=== PATIENT | female | born 1960 | race Caucasian/White ===

== ENCOUNTER 2017-10-30 20:28 | Emergency (ER) | payer MEDICAID, SELFPAY ==
[2017-10-30 20:30] VITALS: BP 146/90; PULSE 89; RESP 16; TEMP 37.3; O2SAT 94; BMI 27.1
--- NOTE | 2017-10-30 21:16 | CT_ITS ---
STUDY: CT BRAIN WITHOUT CONTRAST REASON FOR EXAM: Female, 57 years old. Weakness, altered mental status RADIATION DOSAGE (If Supplied By Facility): CTDIvol = ( 44.99 ) mGy, DLP = ( 745.49 ) mGycm TECHNIQUE: Transaxial CT imaging of the brain was performed without administration of intravenous contrast material. Sagittal and coronal images are reformatted. Individualized dose optimization techniques were used for this CT. COMPARISON: None. FINDINGS: Normal soft tissue structures. Normal calvarium. Normal size ventricles and extra-axial spaces for the patient's age. Normal white matter tracts of the cerebral hemispheres. Normal basal ganglia and thalami. Normal brainstem. Normal cerebellum. There is no intracranial hemorrhage. There are no findings of an acute ischemic infarction. Normal visualized paranasal sinuses. CT/Brain/Head without Contrast IMPRESSION: No acute intracranial process. Electronically Signed: Billy Ferguson DO at 23:02 EDT , Service support ,
--- NOTE | 2017-10-30 21:16 | EKG12_ITS ---
Test Reason : ALT LOC Blood Pressure : / mmHG Vent. Rate : 070 BPM Atrial Rate : 070 BPM P-R Int : 160 ms QRS Dur : 094 ms QT Int : 434 ms P-R-T Axes : 050 -15 007 degrees QTc Int : 468 ms Normal sinus rhythm Normal ECG Confirmed by JARED HANSEN, HUGO ([id number]), editor managing director BERNY NORIEGA ([id number] on 11/03/2017 3:13:13 PM Referred By: AUGUST Confirmed By:HUGO COLEMAN MD
--- NOTE | 2017-10-30 21:35 | RAD_ITS ---
STUDY: X-RAY CHEST REASON FOR EXAM: Female, 57 years old. Shortness of breath, dyspnea TECHNIQUE: Single AP portable view of the chest. COMPARISON: 03/27/2017. FINDINGS: The lungs are clear and expanded. There is no demonstrated pleural abnormality. Normal size heart. Normal mediastinum and bhumika. Normal visualized pulmonary arteries. Normal visualized aortic arch and descending thoracic aorta. Normal visualized thoracic spine. Normal visualized ribs, clavicles, and shoulders. There is no demonstrated abnormality of the visualized soft tissue structures of the upper abdomen. RAD/Chest 1 View (Portable) IMPRESSION: No acute cardiopulmonary disease. Electronically Signed: Billy Ferguson DO at 22:21 EDT , Service support ,
[2017-10-30 22:03] LABS: Absolute Lymphocyte Count 2.05 X10^3/ul (0.83-4.51); Absolute Neutrophil Count 2.4 X10^3/uL (2.0-7.7); Basophil# 0.05 X10^3/uL; Eosinophil# 0.16 X10^3/uL; Eosinophils% 3.1 % (0-5); Hematocrit 38.1 % (37-47); Hemoglobin 12.3 g/dl (12.0-15.0); Lymphocyte # 2.05 X10^3/ul (4.0); Lymphocyte % 39.1 % (19-41); Mean Corp Hgb Conc 32.3 g/gl (32-36); Mean Corpuscular Hgb 29.9 pg (27.0-32.0); Mean Corpuscular Volume 92.7 fL (81-99); Mean Platelet Vol. 8.8 fl (6.2-12.0); Monocyte# 0.53 X10^3/uL; Monocyte% 10.1 % (0-10); Neutrophil # 2.43 X10^3/uL (2.7-7.7); Neutrophil % 46.3 % (47-70); Platelet Count 211 K/mm3 (150-450); RBC Distribution Width CV 13.5 % (11.6-14.6); RBC Distribution Width SD 45.7 fl (35.1-43.9); Red Blood Count 4.11 M/mm3 (4.2-5.4); White Blood Count 5.2 K/mm3 (4.4-11.0)
[2017-10-30 22:23] LABS: Amphetamine Urine VISTA NEGATIVE (<1000 ng/mL); Barbiturate Urine VISTA NEGATIVE (< 200 ng/mL); Benzodiazepine Urine VISTA POSITIVE (< 200 ng/mL); Cocaine Urine VISTA NEGATIVE (< 300 ng/mL); Ecstacy Urine VISTA NEGATIVE (< 500 ng/mL); Methadone Urine VISTA NEGATIVE (< 300 ng/mL); PCP Urine VISTA NEGATIVE (< 25 ng/mL); THC Urine VISTA NEGATIVE (< 50 ng/mL); Vista UDS pH Range 6
[2017-10-30 22:23] LABS: ALB/GLOB Ratio 1.2 RATIO (0.9-2.4); AST(SGOT) 30 U/L (15-37); Alanine Aminotransfer ALT/SGPT 23 U/L (13-56); Albumin, Serum 4.1 g/dL (3.2-5.0); Alkaline Phosphatase 114 U/L (45-117); Anion Gap 7 (5-15); BUN 5 mg/dL (7-18); BUN/Creat Ratio 7.6 RATIO (10-20); Calcium,Total 8.8 mg/dL (8.5-10.1); Chloride 103 mmol/L (98-107); Creatinine, Serum 0.66 mg/dL (0.55-1.02); EST Glomerular Filtration Rate 99 mL/min (>60); Est Glom Filt Rate - Afr Amer 120 mL/min (>60); Estimated Creatinine Clearance 79.67 ml/min; Globulin 3.5 g/dL (2.2-4.2); Glucose 87 mg/dL (74-106); Potassium 3.5 mmol/L (3.5-5.1); Protein, Total 7.6 g/dL (6.4-8.2); Sodium Level 139 mmol/L (136-145)
[2017-10-30 22:38] LABS: POSITIVE COUNT NO; POSITIVE DIFFERENTIAL NO; POSITIVE MORPHOLOGY NO
--- NOTE | 2017-10-30 22:42 | NURSING ---
ALCOHOL LEVEL OF 305 WAS RECEIVED BY THE LAB AND THIS INFORMATION WAS GIVEN TO DR. KOCH.
[2017-10-30 23:01] LABS: Acetaminophen (Tylenol) Level < 2.0 ug/mL (10.0-30.0); Salicylate < 1.7 mg/dL (2.8-20.0)
[2017-10-30 23:40] LABS: Osmolality, Serum 367 mOsm/KG (275-295)
[2017-10-30 23:47] VITALS: PULSE 66; RESP 16; O2SAT 97
[2017-10-31 01:37] VITALS: BP 101/71; PULSE 67; RESP 15; O2SAT 96
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
[2017-10-31] MEDS: Escitalopram Oxalate 20 MG Tablet 40 MG PO (02:22)
[2017-10-31] MEDS: traZODone 50 MG Tablet PO (02:22)
[2017-10-31 02:23] VITALS: BP 112/79; PULSE 86; RESP 18; O2SAT 94
[2017-10-31 03:00] VITALS: BP 105/72; PULSE 63; RESP 16; O2SAT 92
[2017-10-31 04:24] VITALS: BP 108/69; PULSE 69; RESP 14; RESP 15; TEMP 37.3; O2SAT 95
--- NOTE | 2017-10-31 04:26 | NURSING ---
FRIEND THAT WAS PREVIOUSLY AT THE BEDSIDE WAS NOT NOTIFIED BECAUSE PATIENT DID NOT WANT ME TO. SHE SAID SHE WOULD GET A HOLD OF THEM LATER TODAY.
[2017-11-02 12:39] LABS: Methyl Alcohol Negative % (0.000-0.010)
== END 2017-10-31 04:57 | disposition short-term general hospital (02) ==
PROVIDERS: Emergency Provider Emergency Medicine; Family Provider Family Medicine; PCP Family Medicine
DX: F10.129 Alcohol abuse with intoxication, unspecified (principal); F32.9 Major depressive disorder, single episode, unspecified; F41.9 Anxiety disorder, unspecified; I10 Essential (primary) hypertension; Z79.899 Other long term (current) drug therapy; Y90.8 Blood alcohol level of 240 mg/100 ml or more
CPT/HCPCS: 70450; 71045; 80053; 80307; 80320; 80329; 82009; 83930; 85025; 93005; 99284; A4216; G0480

== ENCOUNTER 2017-11-02 23:44 | Emergency (ER) | payer MEDICAID, SELFPAY ==
[2017-11-02 23:47] VITALS: BP 126/104; PULSE 70; RESP 18; TEMP 36.8; O2SAT 98; BMI 27.4
[2017-11-03] VITALS (9 sets, daily range): BP systolic 150–160; BP diastolic 85–105; PULSE 62–87; RESP 14–18; O2SAT 94–98
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
[2017-11-03 00:28] LABS: Absolute Lymphocyte Count 1.76 X10^3/ul (0.83-4.51); Basophil# 0.06 X10^3/uL; Basophil% 1.3 % (0-1); Eosinophil# 0.14 X10^3/uL; Hematocrit 35.6 % (37-47); Hemoglobin 11.5 g/dl (12.0-15.0); Lymphocyte # 1.76 X10^3/ul (4.0); Lymphocyte % 38.1 % (19-41); Mean Corp Hgb Conc 32.3 g/gl (32-36); Mean Platelet Vol. 9.5 fl (6.2-12.0); Monocyte# 0.62 X10^3/uL; Monocyte% 13.4 % (0-10); Neutrophil # 2.01 X10^3/uL (2.7-7.7); Neutrophil % 43.6 % (47-70); Platelet Count 214 K/mm3 (150-450); RBC Distribution Width CV 13.4 % (11.6-14.6); Red Blood Count 3.71 M/mm3 (4.2-5.4); White Blood Count 4.6 K/mm3 (4.4-11.0)
[2017-11-03 00:33] LABS: POSITIVE COUNT NO; POSITIVE DIFFERENTIAL NO; POSITIVE MORPHOLOGY NO
[2017-11-03 00:35] LABS: Bacteria 0 SEEN /hpf (None Seen); Mucous, Urine 0 SEEN /hpf (<or=2+); Red Blood Cells-Urine 0 SEEN /hpf (0-5); Squamous Epithelial Cells - UA 0 SEEN /hpf (5-10); White Blood Cells 0 SEEN /hpf (0-5)
[2017-11-03 00:43] LABS: Color, Urine Straw (Yellow); Glucose, Dipstick Normal (Normal); Ketone-Dipstick Negative (Negative); Leukocyte Esterase-Dipstick Negative /ul (Negative); Nitrite-Dipstick Negative (Negative); Occult Blood-Urine Negative /ul (Negative); Protein-Dipstick Negative (Negative); Urine Bilirubin Dipstick Negative (Negative); Urine Clarity Clear (Clear); Urine Urobilinogen Normal (Normal)
[2017-11-03 00:45] LABS: Vista UDS pH Range 7
[2017-11-03 00:57] LABS: Amphetamine Urine VISTA NEGATIVE (<1000 ng/mL); Barbiturate Urine VISTA NEGATIVE (< 200 ng/mL); Benzodiazepine Urine VISTA NEGATIVE (< 200 ng/mL); Cocaine Urine VISTA NEGATIVE (< 300 ng/mL); Ecstacy Urine VISTA NEGATIVE (< 500 ng/mL); Methadone Urine VISTA NEGATIVE (< 300 ng/mL); PCP Urine VISTA NEGATIVE (< 25 ng/mL); THC Urine VISTA NEGATIVE (< 50 ng/mL)
[2017-11-03 01:15] LABS: ALB/GLOB Ratio 1.2 RATIO (0.9-2.4); AST(SGOT) 40 U/L (15-37); Alanine Aminotransfer ALT/SGPT 29 U/L (13-56); Albumin, Serum 3.9 g/dL (3.2-5.0); Alkaline Phosphatase 96 U/L (45-117); Anion Gap 6 (5-15); BUN 3 mg/dL (7-18); BUN/Creat Ratio 4.7 RATIO (10-20); Calcium,Total 8.9 mg/dL (8.5-10.1); Chloride 107 mmol/L (98-107); Creatinine, Serum 0.64 mg/dL (0.55-1.02); EST Glomerular Filtration Rate 101 mL/min (>60); Est Glom Filt Rate - Afr Amer 123 mL/min (>60); Estimated Creatinine Clearance 82.16 ml/min; Globulin 3.3 g/dL (2.2-4.2); Glucose 97 mg/dL (74-106); Potassium 3.5 mmol/L (3.5-5.1); Protein, Total 7.2 g/dL (6.4-8.2); Sodium Level 142 mmol/L (136-145); Thyroid Stim Hormone (TSH) 1.44 uIU/mL (0.358-3.74)
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
--- NOTE | 2017-11-03 02:37 | ED.RN ---
PATIENTS SON INFORMATION YONG MATIAS [phone] PER SON PATIENT HAD RECENT RELEASE FROM [facility]
[2017-11-03] MEDS: ALPRAZolam 0.5 MG Tablet PO (03:24)
[2017-11-03] MEDS: Atenolol 25 MG Tablet PO (03:24)
[2017-11-03] MEDS: Escitalopram Oxalate 20 MG Tablet 40 MG PO (03:24)
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
== END 2017-11-03 10:40 | disposition home or self-care (01) ==
PROVIDERS: Emergency Provider Emergency Medicine; Family Provider Family Medicine; PCP Family Medicine
DX: R45.851 Suicidal ideations (principal); F10.129 Alcohol abuse with intoxication, unspecified; S00.81XA Abrasion of other part of head, initial encounter; Z79.899 Other long term (current) drug therapy; Y90.6 Blood alcohol level of 120-199 mg/100 ml; V47.0XXA Car driver injured in collision with fixed or stationary object in nontraffic accident, initial encounter; Y93.I9 Activity, other involving external motion; Y92.410 Unspecified street and highway as the place of occurrence of the external cause; Y99.8 Other external cause status
CPT/HCPCS: 36415; 70450; 80053; 80307; 80320; 81001; 84443; 85025; 99285; G0480

== ENCOUNTER → 2018-02-15 11:56 | Outpatient (CLI) | payer MEDICAID, SELFPAY ==
[2018-02-15 12:48] LABS: Prothrombin Time (Protime)PT. 13.4 SECONDS (11.7-14.9)
[2018-02-15 13:18] LABS: AST(SGOT) 27 U/L (15-37); Alanine Aminotransfer ALT/SGPT 27 U/L (13-56); Albumin, Serum 3.5 g/dL (3.2-5.0); Alkaline Phosphatase 113 U/L (45-117); Bilirubin, Direct 0.17 mg/dL (0.00-0.30); Globulin 3.6 g/dL (2.2-4.2); Protein, Total 7.1 g/dL (6.4-8.2)
[2018-02-15 14:09] LABS: Absolute Lymphocyte Count 1.96 X10^3/ul (0.83-4.51); Basophil# 0.08 X10^3/uL; Basophil% 1.3 % (0-1); Eosinophil# 0.22 X10^3/uL; Eosinophils% 3.7 % (0-5); Hematocrit 36.8 % (37-47); Hemoglobin 12.2 g/dl (12.0-15.0); Lymphocyte # 1.96 X10^3/ul (4.0); Lymphocyte % 32.6 % (19-41); Mean Corp Hgb Conc 33.2 g/gl (32-36); Mean Corpuscular Hgb 30.7 pg (27.0-32.0); Mean Corpuscular Volume 92.5 fL (81-99); Mean Platelet Vol. 9.7 fl (6.2-12.0); Monocyte# 0.72 X10^3/uL; Neutrophil # 3.03 X10^3/uL (2.7-7.7); Neutrophil % 50.2 % (47-70); Platelet Count 334 K/mm3 (150-450); RBC Distribution Width CV 13.3 % (11.6-14.6); RBC Distribution Width SD 44.2 fl (35.1-43.9); Red Blood Count 3.98 M/mm3 (4.2-5.4)
[2018-02-15 14:11] LABS: POSITIVE COUNT NO; POSITIVE DIFFERENTIAL NO; POSITIVE MORPHOLOGY NO
== END ==
PROVIDERS: Family Provider Family Medicine; PCP Family Medicine; Visit Provider Family Medicine
DX: R23.8 Other skin changes (principal)
CPT/HCPCS: 36415; 80076; 85025; 85610

== ENCOUNTER → 2018-03-26 12:00 | Outpatient (CLI) | payer MEDICAID, SELFPAY ==
[2018-03-28 08:50] LABS: EBV Acute VCA IgM < 36.0 U/mL (0.0-35.9); EBV Early Antigen IgG 13.6 U/mL (0.0-8.9)
== END ==
PROVIDERS: Family Provider Family Medicine; PCP Family Medicine; Visit Provider Family Medicine
DX: R53.83 Other fatigue (principal)
CPT/HCPCS: 36415; 86663; 86664; 86665

== ENCOUNTER → 2018-03-27 08:37 | Outpatient (CLI) | payer MEDICAID, SELFPAY ==
--- NOTE | 2018-03-27 08:37 | RAD_ITS ---
STUDY: X-RAY - LEFT KNEE REASON FOR EXAM: Pain for one week. TECHNIQUE: 4 view(s) of the knee. COMPARISON: Radiographs 10/02/2013. FINDINGS: Normal visualized distal femur. Normal visualized proximal tibia and fibula. Normal proximal tibiofibular articulation. There is moderate joint space narrowing of the medial femorotibial compartment. Normal lateral femorotibial compartment. There are small marginal osteophytes and moderate joint space narrowing of the patellofemoral articulation. The soft tissue structures are unremarkable. RAD/Knee 4 or More Views IMPRESSION: Arthrosis of the medial femorotibial and patellofemoral compartments as on the prior study. Electronically Signed: Luis Ceron MD at 15:33 EDT Tel , Service support ,
== END ==
PROVIDERS: Family Provider Family Medicine; PCP Family Medicine; Referring Provider Orthopaedic Surgery; Visit Provider Orthopaedic Surgery
DX: M25.562 Pain in left knee (principal)
CPT/HCPCS: 73564

== ENCOUNTER → 2018-05-16 07:56 | Outpatient (CLI) | payer MEDICAID, SELFPAY ==
--- NOTE | 2018-05-16 11:17 | NEURO_ITS ---
NCS and/or EMG Patient Report Ordering Doctor: Adele Gerber DATE OF SERVICE: 05/16/18 This is a bilateral lower extremity nerve conduction study and a right lower extremity EMG performed on this 58-year-old female who is had discoordination of her right lower extremity since an early age. Apparently she had neurophys iologic testing at age 12. She describes difficulty with the small muscles in her right foot. When she was a child her right shoe would slip off of her foot and she does trip occasionally. On examination, there does not appear to be any muscle atrophy in the right lower extremity, reflexes are intact. Bilateral lower extremity sensory and motor nerve conduction studies performed. The right sural sensory response is absent on the left side it is normal. The peroneal motor and tibial motor distal latencies amplitudes and conduction velocities are preserved bilaterally and the superficial peroneal sensory and medial plantar responses bilaterally are intact. Tibial and peroneal F-wave latencies are normal. There is mild reduction of the left tibial H reflex response of unclear clinical significance. Right lower extremity needle electromyography is performed. Muscles evaluated included the extensor digitorum brevis abductor hallucis, medial gastrocnemius, anterior tibialis, vastus medialis and vastus lateralis. There was no response from the small muscles of the feet. More proximal muscles were normal. Abnormal insertional activity was absent, and otherwise motor unit potential recruitment pattern and amplitude was normal. 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 There is also muscle atrophy of the small muscles of the foot. This is somewhat complicated by limited patient effort during examination. There is no evidence of radiculopathy. May represent a congenital neuropathy, or possibly AUTOMATION OPERATOR injury despite the absence of upper motor neuron findings.
== END ==
PROVIDERS: Family Provider Family Medicine; PCP Family Medicine; Referring Provider Orthopaedic Surgery; Visit Provider Orthopaedic Surgery
DX: M62.81 Muscle weakness (generalized) (principal)
CPT/HCPCS: 95886; 95912

== ENCOUNTER → 2018-09-04 16:50 | Outpatient (CLI) | payer MEDICAID, SELFPAY ==
[2018-09-04 17:36] LABS: Absolute Neutrophil Count 5.4 X10^3/uL (2.0-7.7); Basophil# 0.12 X10^3/uL; Basophil% 1.3 % (0-1); Eosinophil# 0.66 X10^3/uL; Eosinophils% 6.9 % (0-5); Hematocrit 37.2 % (37-47); Hemoglobin 11.7 g/dl (12.0-15.0); Lymphocyte % 27.2 % (19-41); Mean Corp Hgb Conc 31.5 g/gl (32-36); Mean Corpuscular Hgb 28.7 pg (27.0-32.0); Mean Corpuscular Volume 91.4 fL (81-99); Mean Platelet Vol. 9.6 fl (6.2-12.0); Monocyte# 0.78 X10^3/uL; Monocyte% 8.2 % (0-10); Neutrophil # 5.38 X10^3/uL (2.7-7.7); Neutrophil % 56.2 % (47-70); Platelet Count 314 K/mm3 (150-450); RBC Distribution Width CV 12.8 % (11.6-14.6); RBC Distribution Width SD 41.9 fl (35.1-43.9); Red Blood Count 4.07 M/mm3 (4.2-5.4); White Blood Count 9.6 K/mm3 (4.4-11.0)
[2018-09-04 17:37] LABS: POSITIVE COUNT NO; POSITIVE DIFFERENTIAL NO; POSITIVE MORPHOLOGY NO
[2018-09-04 17:42] LABS: Color, Urine Yellow (Yellow); Glucose, Dipstick Normal (Normal); Ketone-Dipstick Negative (Negative); Leukocyte Esterase-Dipstick Negative /ul (Negative); Nitrite-Dipstick Negative (Negative); Occult Blood-Urine Negative /ul (Negative); Protein-Dipstick Negative (Negative); Specific Gravity, Urine 1.005 (1.002-1.030); Urine Bilirubin Dipstick Negative (Negative); Urine Clarity Clear (Clear); Urine Urobilinogen Normal (Normal)
[2018-09-04 18:20] LABS: ALB/GLOB Ratio 1.1 RATIO (0.9-2.4); AST(SGOT) 14 U/L (15-37); Alanine Aminotransfer ALT/SGPT 18 U/L (13-56); Albumin, Serum 3.6 g/dL (3.2-5.0); Alkaline Phosphatase 92 U/L (45-117); Anion Gap 9 (5-15); BUN 7 mg/dL (7-18); Calcium,Total 8.5 mg/dL (8.5-10.1); Chloride 101 mmol/L (98-107); Cholesterol 184 mg/dL (200); Creatinine, Serum 0.78 mg/dL (0.55-1.02); EST Glomerular Filtration Rate 81 mL/min (>60); Est Glom Filt Rate - Afr Amer 98 mL/min (>60); Globulin 3.4 g/dL (2.2-4.2); Glucose 132 mg/dL (74-106); High Density Lipoprotein 87 mg/dL; Potassium 3.9 mmol/L (3.5-5.1); Sodium Level 139 mmol/L (136-145); Triglycerides 137 mg/dL; Very Low Density Lipoprotein 27 mg/dL (5-40)
== END ==
PROVIDERS: Family Provider Family Medicine; PCP Family Medicine; Referring Provider Family Medicine; Visit Provider Family Medicine
DX: Z00.00 Encounter for general adult medical examination without abnormal findings (principal); I10 Essential (primary) hypertension
CPT/HCPCS: 36415; 80053; 80061; 81002; 85025

== ENCOUNTER → 2018-09-07 13:08 | Outpatient (CLI) | payer MEDICAID, SELFPAY ==
[2018-09-07 14:58] LABS: Hemoglobin A1c 5.8 % (4.2-6.3)
[2018-09-07 15:06] LABS: Vitamin D,25 Hydroxy 24.4 ng/mL (29.95-100.01)
== END ==
PROVIDERS: Family Provider Family Medicine; PCP Family Medicine; Referring Provider Family Medicine; Visit Provider Family Medicine
DX: R73.9 Hyperglycemia, unspecified (principal); R53.83 Other fatigue; E55.9 Vitamin D deficiency, unspecified
CPT/HCPCS: 36415; 82306; 83036

== ENCOUNTER → 2018-11-05 | Outpatient (CLI) | payer MEDICAID, SELFPAY ==
--- NOTE | 2018-11-05 12:52 | BI_ITS ---
MAMMOGRAPHY - BILATERAL SCREENING 3-D TOMOSYNTHESIS REASON FOR EXAM: Female, 58 years old. Bilateral Screening 3-D tomosynthesis PERTINENT HISTORY: No significant family history. TECHNIQUE: 2-D mammograms and 3-D Tomosynthesis of the breast (s) were performed. CAD was performed. COMPARISON: March 25, 2015. FINDINGS: The breast composition is composed of scattered fibroglandular density. Scattered benign calcifications are seen. No dense spiculated masses or suspicious microcalcifications are identified. No architectural distortion is identified. There is no skin thickening or retraction. There has been no significant change since the prior study. BI/SCREENING MAMM (CAD), BILAT IMPRESSION: No mammographic signs of malignancy. Routine yearly mammograms recommended. ASSESSMENT CATEGORY: BIRADS Category 1: Negative. A letter regarding these results will be sent to the patient by the facility within 30 days. FOLLOW UP RECOMMENDATION: Yearly follow up mammogram recommended. (A) Approximately 10% of breast cancers are not detected by mammography. A normal mammogram should not delay biopsy of a clinically suspicious abnormality. Electronically Signed: James Stokes MD at 14:14 EDT , Service support ,
== END | disposition home or self-care (01) ==
LOC: OPBI 12:51
PROVIDERS: Family Provider Family Medicine; PCP Family Medicine; Referring Provider Family Medicine; Visit Provider Family Medicine
DX: Z12.31 Encounter for screening mammogram for malignant neoplasm of breast (principal)
CPT/HCPCS: 77063; 77067

== ENCOUNTER → 2018-11-06 | Outpatient (CLI) | payer MEDICAID, SELFPAY ==
[2018-11-06 17:21] LABS: Absolute Lymphocyte Count 2.04 X10^3/ul (0.83-4.51); Absolute Neutrophil Count 5.4 X10^3/uL (2.0-7.7); Basophil# 0.06 X10^3/uL; Basophil% 0.7 % (0-1); Eosinophil# 0.28 X10^3/uL; Eosinophils% 3.2 % (0-5); Hematocrit 36.4 % (37-47); Hemoglobin 11.5 g/dl (12.0-15.0); Lymphocyte # 2.04 X10^3/ul (4.0); Lymphocyte % 23.2 % (19-41); Mean Corp Hgb Conc 31.6 g/gl (32-36); Mean Corpuscular Hgb 26.9 pg (27.0-32.0); Monocyte# 0.97 X10^3/uL; Neutrophil # 5.42 X10^3/uL (2.7-7.7); Neutrophil % 61.6 % (47-70); Platelet Count 311 K/mm3 (150-450); RBC Distribution Width CV 13.1 % (11.6-14.6); Red Blood Count 4.28 M/mm3 (4.2-5.4); White Blood Count 8.8 K/mm3 (4.4-11.0)
[2018-11-06 17:24] LABS: POSITIVE COUNT NO; POSITIVE DIFFERENTIAL NO; POSITIVE MORPHOLOGY NO
[2018-11-06 17:27] LABS: Erythrocyte Sedimentation Rate 12 mm/hr (0-30)
[2018-11-06 18:35] LABS: ALB/GLOB Ratio 0.9 RATIO (0.9-2.4); AST(SGOT) 20 U/L (15-37); Alanine Aminotransfer ALT/SGPT 22 U/L (13-56); Albumin, Serum 3.5 g/dL (3.2-5.0); Alkaline Phosphatase 112 U/L (45-117); Anion Gap 10 (5-15); BUN 15 mg/dL (7-18); BUN/Creat Ratio 16.8 RATIO (10-20); Calcium,Total 8.9 mg/dL (8.5-10.1); Chloride 105 mmol/L (98-107); Creatinine, Serum 0.89 mg/dL (0.55-1.02); EST Glomerular Filtration Rate 69 mL/min (>60); Est Glom Filt Rate - Afr Amer 84 mL/min (>60); Globulin 3.7 g/dL (2.2-4.2); Glucose 92 mg/dL (74-106); Potassium 3.7 mmol/L (3.5-5.1); Protein, Total 7.2 g/dL (6.4-8.2); Sodium Level 139 mmol/L (136-145); Thyroid Stim Hormone (TSH) 1.82 uIU/mL (0.358-3.74)
[2018-11-06 18:41] LABS: HIV - WCH Non-Reactive (Nonreactive)
[2018-11-08 09:37] LABS: HEPATITIS B SURFACE AG Negative (Negative); Hepatitis A AB, Total Positive (Negative); Hepatitis A IgM Antibody Negative (Negative); Hepatitis B Core AB IgM Negative (Negative); Hepatitis B Core Ab Total Negative (Negative); Hepatitis C Ab <0.1 s/co ratio (0.0-0.9)
[2018-11-08 15:26] LABS: Hep B Surface Antibodies Reactive (.)
[2018-11-09 03:40] LABS: Rapid Plasmin Reagin (RPR) NONREACTIVE (NONREACTIVE)
[2018-11-12 16:06] LABS: Lyme IgG P18 Ab Absent (.); Lyme IgG P23 Ab Absent (.); Lyme IgG P28 Ab Absent (.); Lyme IgG P30 Ab Absent (.); Lyme IgG P39 Ab Absent (.); Lyme IgG P41 Ab Absent (.); Lyme IgG P45 Ab Absent (.); Lyme IgG P58 Ab Absent (.); Lyme IgG P66 Ab Absent (.); Lyme IgG P93 Ab Absent (.); Lyme IgM P23 Ab Absent (.); Lyme IgM P39 Ab Absent (.); Lyme IgM P41 Ab Absent (.)
[2018-11-13 10:07] LABS: Lyme IgG WB Interpretation Negative (.); Lyme IgM WB Interpretation Negative (.)
== END | disposition home or self-care (01) ==
PROVIDERS: Family Provider Family Medicine; PCP Family Medicine
DX: R53.82 Chronic fatigue, unspecified (principal)
CPT/HCPCS: 36415; 80053; 82248; 84443; 85025; 85652; 86592; 86617; 86703; 86704; 86705; 86706; 86708; 86709; 86803; 87340

== ENCOUNTER → 2018-12-03 | Outpatient (CLI) | payer MEDICAID, SELFPAY ==
[2018-12-03 17:23] LABS: Absolute Lymphocyte Count 1.31 X10^3/ul (0.83-4.51); Absolute Neutrophil Count 4.2 X10^3/uL (2.0-7.7); Basophil# 0.06 X10^3/uL; Eosinophil# 0.04 X10^3/uL; Eosinophils% 0.7 % (0-5); Hematocrit 34.3 % (37-47); Lymphocyte # 1.31 X10^3/ul (4.0); Lymphocyte % 21.8 % (19-41); Mean Corp Hgb Conc 32.1 g/gl (32-36); Mean Corpuscular Hgb 27.2 pg (27.0-32.0); Mean Corpuscular Volume 84.9 fL (81-99); Mean Platelet Vol. 9.2 fl (6.2-12.0); Monocyte# 0.38 X10^3/uL; Monocyte% 6.3 % (0-10); Platelet Count 320 K/mm3 (150-450); RBC Distribution Width CV 13.4 % (11.6-14.6); RBC Distribution Width SD 41.9 fl (35.1-43.9); Red Blood Count 4.04 M/mm3 (4.2-5.4)
[2018-12-03 17:35] LABS: POSITIVE COUNT NO; POSITIVE DIFFERENTIAL NO; POSITIVE MORPHOLOGY NO
[2018-12-03 17:56] LABS: Ferritin 4 ng/mL (8-252); Iron 36 ug/dL (50-170)
[2018-12-03 18:45] LABS: Hemoglobin A1c 5.7 % (4.2-6.3)
== END | disposition home or self-care (01) ==
LOC: LAB 16:26
PROVIDERS: Family Provider Family Medicine; PCP Family Medicine; Referring Provider Family Medicine; Visit Provider Family Medicine
DX: E55.9 Vitamin D deficiency, unspecified (principal); E61.1 Iron deficiency; R73.9 Hyperglycemia, unspecified
CPT/HCPCS: 36415; 82306; 82728; 83036; 83540; 85025

== ENCOUNTER → 2018-12-12 | Outpatient (CLI) | payer MEDICAID, SELFPAY ==
--- NOTE | 2018-12-12 11:08 | BD_ITS ---
STUDY: DUAL ENERGY X-RAY ABSORPTIOMETRY / DXA REASON FOR EXAM: Female, 58 years old. The patient is postmenopausal. Loss of height. TECHNIQUE: Bone Mineral Density (BMD) measurements of lumbar spine and bilateral hips were obtained. COMPARISON: Comparison is made with prior study dated March 25, 2015. FINDINGS: Lumbar Spine (L1-L4): g/cm2 (0.801) / T-score (-3.2) / Z-score (-2.2) Findings are suggestive of osteoporosis with a high fracture risk. Left Femur Total: g/cm2 (0.727) / T-score (-2.2) / Z-score (-1.5) Left Femoral Neck: g/cm2 (0.722) / T-score (-2.3) / Z-score (-1.2) Right Femur Total: g/cm2 (0.730) / T-score (-2.2) / Z-score (-1.4) Right Femoral Neck: g/cm2 (0.746) / T-score (-2.1) / Z-score (-1.0) The T-Scores on the most recent prior examination were: Lumbar Spine (L1-L4): There has been worsening of bone density since the previous examination. Left Femur Total: which represents a worsening of 4%. Right Femur Total: which represents a worsening of 2.3%. BD/Dexa Bone Density Study IMPRESSION: The patient is considered osteoporotic as outlined below according to World Vaughn Organization (WHO) criteria with a high fracture risk. There has been worsening of bone density since the previous examination. Reference Information: The T-score is the number of standard deviations above or below the standard which is normal for young adults at their peak bone mineral density. The World Health Organization (WHO) interprets the T-scores as follows: Above -1 Normal bone density Between -1 and -2.5 Osteopenia Equal to / or below -2.5 Osteoporosis As a practical clinical guideline, osteopenia may be graded as follows: Mild -1 through -1.5 Moderate -1.6 through -2.0 Severe -2.1 through -2.4 The Z-score is the number of standard deviations above or below age-matched controls. A Z-score of less than -1.5 would be considered abnormal. References: 1. NIH Osteoporosis and Related Bone Diseases http://www.osteo.org 2. International Society for Clinical Densitometry http://www.iscd.org 3. National Osteoporosis Foundation http://www.nof.org Electronically Signed: David Arreguin, at 15:39 EDT , Service support ,
== END | disposition home or self-care (01) ==
LOC: OPBD 11:02
PROVIDERS: Family Provider Family Medicine; PCP Family Medicine; Referring Provider Family Medicine; Visit Provider Family Medicine
DX: Z78.0 Asymptomatic menopausal state (principal)
CPT/HCPCS: 77080

== ENCOUNTER → 2019-01-01 | Outpatient (CLI) | payer MEDICAID, SELFPAY ==
--- NOTE | 2019-01-01 10:45 | MRI_ITS ---
STUDY: MRI BRAIN WITH AND WITHOUT CONTRAST (ATTENTION INTERNAL AUDITORY CANALS - I.A.C.'s) REASON FOR EXAM: Female, 58 years old. Dizziness TECHNIQUE: Standardized multiplanar fat and water weighted pulse sequences were obtained. 19 IV Dotarem was administered for the contrast portion of the examination. COMPARISON: None. FINDINGS: Normal bilateral temporal bones. Normal bilateral internal auditory canals. There is no demonstrated intracanalicular or cisternal vestibular schwannoma (acoustic neuroma). There is no enhancement of the bilateral VIIth or VIIIth cranial nerves. Normal bilateral cochlea, vestibules and semicircular canals. Normal size of the ventricles and extra-axial spaces for the patient's age. Normal white matter tracts of the supratentorial brain. Normal bilateral basal ganglia. Normal thalami. Normal flow voids within the major intracranial circulation suggesting patency by spin echo criteria. Normal venous enhancement. There is no enhancing intra-axial or extra-axial abnormality. There is no extra-axial fluid accumulation. Normal sella turcica, pituitary gland, infundibular stalk, optic chiasm and hypothalamus. Normal tectal plate and pineal gland. Normal midbrain, joseph and medulla. Normal cerebellum. Normal basal cisterns. No demonstrated orbital abnormality, within the constraints of a routine brain study. Normal visualized paranasal sinuses. Normal calvarium and skull base. Normal visualized soft tissue structures. Normal visualized upper cervical spine. MRI/Brain W/WO Contrast IMPRESSION: Normal unenhanced and enhanced MRI of the bilateral internal auditory canals (I.A.C's). Electronically Signed: Ellis Burt MD at 13:31 EDT Tel , Service support ,
== END | disposition home or self-care (01) ==
LOC: MRI 10:40
PROVIDERS: Family Provider Family Medicine; PCP Family Medicine; Referring Provider Otolaryngology; Visit Provider Otolaryngology
DX: R42 Dizziness and giddiness (principal); H53.9 Unspecified visual disturbance
CPT/HCPCS: 70553; A9575

== ENCOUNTER → 2019-01-21 | Outpatient (CLI) | payer MEDICAID, SELFPAY ==
--- NOTE | 2019-01-21 15:18 | CT_ITS ---
STUDY: CT TEMPORAL BONES WITHOUT CONTRAST - ATTN: I.A.C. S REASON FOR EXAM: Female, 58 years old. Dizziness with head rotation RADIATION DOSAGE (If Supplied By Facility): CTDIvol = ( 93.25 ) mGy, DLP = ( 789.89 ) mGycm TECHNIQUE: The patient was scanned in a multi detector CT scanner. Transaxial imaging was performed without the administration of intravenous contrast material. Sagittal and coronal images were reconstructed. Individualized dose optimization techniques were used for this CT. COMPARISON: None. FINDINGS: RIGHT TEMPORAL BONE Normal right internal auditory canal. Normal visualized ossicles and tympanic cavity. Normal right cochlea and semicircular canals. Normal vestibular aqueduct. Normal right petrous carotid artery. Normal right jugular fossa. Normal right mastoid air cells. Normal right petrous apex. LEFT TEMPORAL BONE Normal left internal auditory canal. Normal visualized ossicles and tympanic cavity. Normal left cochlea and semicircular canals. Normal vestibular aqueduct. Normal left petrous carotid artery. Normal right jugular fossa. Normal left mastoid air cells. Normal left petrous apex. CT/Orb Sella Post Fossa Ear w/o IMPRESSION: Normal unenhanced CT examination of the bilateral temporal bones (I.A.C.'s). Electronically Signed: Ellis Burt MD at 18:25 EDT Tel , Service support ,
== END | disposition home or self-care (01) ==
LOC: CT 15:17
PROVIDERS: Family Provider Family Medicine; PCP Family Medicine; Referring Provider Otolaryngology; Visit Provider Otolaryngology
DX: R42 Dizziness and giddiness (principal)
CPT/HCPCS: 70480

== ENCOUNTER → 2019-02-19 | Outpatient (CLI) | payer MEDICAID, SELFPAY ==
--- NOTE | 2019-02-19 15:04 | RAD_ITS ---
STUDY: X-RAY - LEFT KNEE REASON FOR EXAM: Knee pain, no specific injury. TECHNIQUE: 4 view(s) of the knee. COMPARISON: Radiographs 03/27/2018. FINDINGS: Normal visualized distal femur. Normal visualized proximal tibia and fibula. Normal proximal tibiofibular articulation. There is severe joint space narrowing of the medial femorotibial compartment, increased since the prior study. Normal lateral femorotibial compartment. There are small marginal osteophytes and moderate joint space narrowing of the patellofemoral articulation as on the prior study. The soft tissue structures are unremarkable. RAD/Knee 4 or More Views IMPRESSION: Arthrosis of the medial femorotibial and patellofemoral compartments. Electronically Signed: Luis Ceron MD at 15:32 EDT Tel , Service support ,
== END | disposition home or self-care (01) ==
LOC: HPRAD 15:04
PROVIDERS: Family Provider Family Medicine; PCP Family Medicine; Referring Provider Orthopaedic Surgery; Visit Provider Orthopaedic Surgery
DX: M17.12 Unilateral primary osteoarthritis, left knee (principal)
CPT/HCPCS: 73564

== ENCOUNTER → 2019-03-06 | Outpatient (CLI) | payer MEDICAID, SELFPAY ==
--- NOTE | 2019-03-06 10:48 | MRI_ITS ---
STUDY: MRI LEFT KNEE REASON FOR EXAM: Increasing medial knee pain, no specific injury. TECHNIQUE: Standardized fat and water weighted pulse sequences were obtained in all 3 orthogonal planes. COMPARISON: MRI images 10/09/2013 and radiographs 02/19/2019. FINDINGS: There is a partial medial meniscectomy without discrete recurrent medial meniscal tear. There is peripheral subluxation of the medial meniscus. There is arthrosis of the medial femorotibial compartment with marginal osteophytes and chondral loss (T2 sagittal image 7). There is mild subchondral bone edema of the medial femoral condyle and tibial plateau (T2 coronal images 15-21), a stress phenomenon. Normal medial collateral ligamentous complex (MCL). Normal distal semimembranosus, gracilis and semitendinosus tendons. Normal lateral meniscus. Normal hyaline cartilage of the lateral femorotibial compartment. Normal lateral femoral condyle and tibial plateau. Normal proximal tibiofibular articulation. Normal lateral collateral (fibular) ligament. Normal popliteus tendon. Normal biceps femoris tendon. Normal anterior cruciate ligament (ACL). Normal posterior cruciate ligament (PCL). Normal congruent patellofemoral articulation. There is arthrosis of the patellofemoral compartment with small marginal osteophytes, partial-thickness chondral loss (T2 sagittal image 14) and mild subchondral cystic change. Normal medial and lateral patellar retinaculum. Normal quadriceps tendon. Normal patellar tendon. There is mild postoperative scarring in Hoffa's fat pad. There is a small joint effusion. There is a small popliteal cyst (T2 sagittal images 5-7). There is edema in the anterior subcutis adipose space. The otherwise visualized osseous structures are unremarkable. MRI/Lower Ext Joint Only (Routine) IMPRESSION: Partial medial meniscectomy without demonstrated recurrent medial meniscal tear. Arthrosis of the medial femorotibial and patellofemoral compartments. Mild subchondral bone edema of the medial femoral condyle and medial tibial plateau, a stress phenomenon. Small joint effusion. Small popliteal cyst. Electronically Signed: Luis Ceron MD at 15:29 EDT Tel , Service support ,
== END | disposition home or self-care (01) ==
LOC: MRI 10:47
PROVIDERS: Family Provider Family Medicine; PCP Family Medicine; Referring Provider Orthopaedic Surgery; Visit Provider Orthopaedic Surgery
DX: M17.12 Unilateral primary osteoarthritis, left knee (principal)
CPT/HCPCS: 73721

== ENCOUNTER → 2019-03-21 | Outpatient (CLI) | payer MEDICAID, SELFPAY ==
[2019-03-21 14:52] VITALS: BP 138/82; PULSE 68; RESP 16; TEMP 36.8; O2SAT 97; BMI 38.2
[2019-03-21] MEDS: Zoledronic Acid 5 MG 100 ML 300 MG IV (15:07)
== END | disposition home or self-care (01) ==
LOC: MEDOUTP 14:40
PROVIDERS: Family Provider Family Medicine; PCP Family Medicine; Referring Provider Family Medicine; Visit Provider Family Medicine
DX: M81.0 Age-related osteoporosis without current pathological fracture (principal)
CPT/HCPCS: 96365; A4216; J3489

== ENCOUNTER → 2020-01-10 | Outpatient (CLI) | payer MEDICAID, SELFPAY ==
[2019-11-19 09:41] VITALS: BMI 38.2
--- NOTE | 2020-01-10 16:55 | RAD_ITS ---
STUDY: X-RAY - LUMBAR SPINE REASON FOR EXAM: Female, 59 years old. lumbar sprain, previous laminectomy L2/L3 15 years ago TECHNIQUE: 3 view(s) of the lumbar spine were obtained. COMPARISON: 06/24/2015 FINDINGS: Normal lumbar lordosis. There is no substantial scoliosis. 5 mm retrolisthesis of L2 on L3 which is unchanged. Normal vertebral bodies and endplates. Normal disc space heights. The soft tissue structures are unremarkable. RAD/Lumbar Spine 2 or 3 Views IMPRESSION: Focal degenerative disc disease at L2/L3 with 5 mm retrolisthesis of L2 on L3 which is unchanged. Electronically Signed: Dmitriy Covarrubias MD at 6:26 EDT Tel , Service support ,
== END | disposition home or self-care (01) ==
LOC: RAD 16:45
PROVIDERS: PCP Family Medicine; Referring Provider Chiropractor; Visit Provider Chiropractor
DX: S33.5XXA Sprain of ligaments of lumbar spine, initial encounter (principal); Z98.1 Arthrodesis status
CPT/HCPCS: 72100

== ENCOUNTER → 2020-03-31 | Outpatient (CLI) | payer MEDICAID, SELFPAY ==
[2019-03-21 14:52] VITALS: BMI 38.2
[2019-11-19 09:41] VITALS: BMI 38.2
[2020-03-31 19:01] LABS: Iron 116 ug/dL (50-170)
== END | disposition home or self-care (01) ==
LOC: LAB 17:02
PROVIDERS: PCP Family Medicine; Referring Provider Family Medicine; Visit Provider Family Medicine
DX: B27.90 Infectious mononucleosis, unspecified without complication (principal)
CPT/HCPCS: 36415; 83540; 86663; 86664; 86665

== ENCOUNTER → 2020-08-26 13:43 | Outpatient (CLI) | payer MEDICAID, SELFPAY ==
[2019-11-19 09:41] VITALS: BMI 38.2
--- NOTE | 2020-08-26 15:04 | NEURO_ITS ---
NCS and/or EMG Patient Report Ordering Doctor: Adele Gerber DATE OF SERVICE: 08/26/20 Cleopatra Solis presents for electrodiagnostic testing of the upper limbs. She reports numbness and tingling in both hands and pain in her elbows. Electrodiagnostic findings: Median motor nerve demonstrates normal distal laten cy, amplitude and conduction velocity bilaterally. Normal ulnar motor response bilaterally, including conduction across the elbow. Normal median and ulnar F waves. Prolonged median sensory latency noted at the wrist bilaterally. Normal ulnar and radial sensory responses. On needle EMG, all muscles tested in the upper limb showed no evidence of denervation with normal motor unit action potentials. Electrodiagnostic impression: This is an abnormal study in the upper limbs. 1. Electrodiagnostic findings demonstrate bilateral median mononeuropathy. This is consistent with a mild bilateral carpal tunnel syndrome. 2. There is no electrodiagnostic evidence for ulnar neuropathy, including cubital tunnel syndrome. If there are any further questions, please do not hesitate to contact me.
== END ==
PROVIDERS: PCP Family Medicine; Referring Provider Orthopaedic Surgery; Visit Provider Orthopaedic Surgery
DX: G56.03 Carpal tunnel syndrome, bilateral upper limbs (principal)
CPT/HCPCS: 95886; 95913

== ENCOUNTER → 2020-08-26 15:23 | Outpatient (CLI) | payer MEDICAID, SELFPAY ==
[2019-11-19 09:41] VITALS: BMI 38.2
[2020-08-26 16:28] LABS: Absolute Lymphocyte Count 2.45 X10^3/uL (0.83-4.51); Absolute Neutrophil Count 5.2 X10^3/uL (2.0-7.7); Basophil# 0.07 X10^3/uL; Basophil% 0.8 % (0-1); Eosinophils% 2.3 % (0-5); Hematocrit 40.3 % (37-47); Hemoglobin 12.8 g/dL (12.0-15.0); Lymphocyte # 2.45 X10^3/ul (4.0); Lymphocyte % 28.3 % (19-41); Mean Corp Hgb Conc 31.8 g/dL (32-36); Mean Corpuscular Hgb 29.4 pg (27.0-32.0); Mean Corpuscular Volume 92.4 fL (81-99); Mean Platelet Vol. 10.1 fl (6.2-12.0); Monocyte# 0.71 X10^3/uL; Monocyte% 8.2 % (0-10); NRBC Flagged by Analyzer 0 % (0-5); Neutrophil # 5.19 X10^3/uL (2.7-7.7); Neutrophil % 59.8 % (47-70); Platelet Count 315 K/mm3 (150-450); RBC Distribution Width CV 12.1 % (11.6-14.6); RBC Distribution Width SD 41.1 fl (35.1-43.9); Red Blood Count 4.36 M/mm3 (4.2-5.4); White Blood Count 8.7 K/mm3 (4.4-11.0)
[2020-08-26 17:02] LABS: Vitamin D,25 Hydroxy 40.4 ng/mL
[2020-08-26 17:04] LABS: AST(SGOT) 13 U/L (15-37); Alanine Aminotransfer ALT/SGPT 19 U/L (13-56); Albumin, Serum 3.6 g/dL (3.2-5.0); Alkaline Phosphatase 109 U/L (45-117); Anion Gap 5 (5-15); BUN 9 mg/dL (7-18); BUN/Creat Ratio 12.6 RATIO (10-20); Calcium,Total 8.7 mg/dL (8.5-10.1); Chloride 100 mmol/L (98-107); Creatinine, Serum 0.71 mg/dL (0.55-1.02); EST Glomerular Filtration Rate 89 mL/min (>60); Est Glom Filt Rate - Afr Amer 108 mL/min (>60); Globulin 3.7 g/dL (2.2-4.2); Glucose 103 mg/dL (74-106); Potassium 3.8 mmol/L (3.5-5.1); Protein, Total 7.3 g/dL (6.4-8.2); Sodium Level 136 mmol/L (136-145)
[2020-08-26 17:42] LABS: Hemoglobin A1c 5.4 % (3.8-5.6)
== END ==
LOC: LAB.FUTURE 15:25 → LAB 08-27 07:26
PROVIDERS: PCP Family Medicine; Visit Provider Family Medicine
DX: Z00.00 Encounter for general adult medical examination without abnormal findings (principal); I10 Essential (primary) hypertension; E55.9 Vitamin D deficiency, unspecified; D50.9 Iron deficiency anemia, unspecified; G56.03 Carpal tunnel syndrome, bilateral upper limbs; R73.9 Hyperglycemia, unspecified
CPT/HCPCS: 36415; 80053; 82306; 83036; 85025; 95886; 95913

== ENCOUNTER 2020-11-13 10:00 | Outpatient (RCR) | payer MEDICAID, SELFPAY ==
[2019-11-19 09:41] VITALS: BMI 38.2
--- NOTE | 2020-10-15 15:28 | HP.OTEVAL ---
Patient's Visit Information HELENA SLOAN is a 60 year old F, referred to Occupational Therapy by Dr. Adele Gerber DO, with a diagnosis of Bilateral CTS, medial epi. Date of Evaluation: 10/15/20 Occupational Therapist: Lexy Wahl, EVELIA/Nadege, CHT - Subjective This 60 year old female was seen for OT eval with dx of B CTS and B medial epicondylitis. left elbow more painful than right. pt states she takes aleve to hlep decrease her pain. pt states bilateral fingers thumb, IF and MF numbness. 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 pt would like to know what she can do to help with the pain. - Pain right elbow 0 left elbow 4 Pain Intensity Range: 7 - Objective Therapist noticed bilateral UE scars that pt reports she had sx to remove excessive skin- therapist questioned if symptoms started after this sx. pt is not sure- - ROM Elbow: right -10/150 left -5/150 Forearm: right WNL left supination to 0 due to left wrist fx Wrist: right 70/75 left 75/60 - Strength Automatic Centrifugal Station Operator: right 60# left 20# Lateral Pinch: right 10# left 2# Tripod Pinch: right 18# left 10# Strength Comments: left wrist fx 2000. pt did have bariatirc sx about 9 years ago and had sx for skin removal on UE in 2014 - Sensation Thumb: right 3.22 left 2.83 Index: right 3.22 left 2.83 Middle: right 3.22 left 2.83 Ring: right 3.22 left 2.83 Little: right 3.22 left 2.83 - Special Tests Phalen's (Carpal Tunnel): positive Elbow Flexion Test - Cubital Tunnel: positive - Quick DASH-Disab of Arm,Shoulder& Hand Quick DASH Score: 40.0000 - Carpal Tunnel Syndrome Total Score of Symptom & Functional Sections: 29 - Goals Goal:: pt will demo a increase in left warehouse sorter strength by 30# or greater to increase pts ind. with ADLs and IADLs by d.c Goal:: pt will report no pain greater than 2/10 with use of bilateral UE with ADLs and IADLs by d/c Goal:: pt will demo understanding of elbow, wrist ergo to decrease stress on nerves by d/c - Rehabilitation General Assessment: pt demo with challenges with bilateral medial elbow pain, and tingling/numbness of bilateral hands. pt would benefit from skilled OT 2x week for 3-4 weeks to decrease pts symptoms and return pt to pLOF. Today thearpist ed. pt on use of elbow bracing, and wrist bracing at night. ice, heat prn. therapy will ed pt on median/ular nerve glides. pt demo understanding and agree to POC. Rehabilitation Potential: Good - Anticipated Interventions A/AAROM/PROM, Strengthening, Orthoses, Ergonomic Education - Visit Plan Frequency: 1-2x /Week Duration: 2-4 Weeks TEXT: Thank you for the opportunity to evaluate your patient. For Medicare and Medicare HMO plans, please review the plan of care and approve it. It will need to be FAXED BACK to us at [phone] for Medicare purposes. Please let me know if there are questions or concerns regarding this plan of care. Physician Signature: Date:
--- NOTE | 2020-11-24 11:56 | HP.OTDCSUM_ITS ---
It has been my pleasure to treat HELENA SLOAN under orders from Dr. Adele Gerber DO, for the diagnosis of Bilateral CTS, medial epi for a total of 5 visit(s). Please see the following information for a summary of their discharge status. % Improvement: 70 Patient Goals: Use Hand/Wrist/Arm Normally Again, Sleep Better, Decrease Tingling/Numbness Goal:: pt will demo a increase in left belt picker strength by 30# or greater to increase pts ind. with ADLs and IADLs by d.c Goal:: pt will report no pain greater than 2/10 with use of bilateral UE with ADLs and IADLs by d/c Goal:: pt will demo understanding of elbow, wrist ergo to decrease stress on ne rves by d/c Plan: cont with nerve glides If there are questions or concerns regarding this patient's occupational therapy, please fell free to call me at [phone]. Thank you for the referral of this patient. Sincerely, Lexy Wahl, OTR/L, CHT
== END 2020-11-13 19:00 | disposition home or self-care (01) ==
LOC: OT 10:00
PROVIDERS: PCP Family Medicine; Referring Provider Orthopaedic Surgery; Visit Provider Orthopaedic Surgery
DX: G56.03 Carpal tunnel syndrome, bilateral upper limbs (principal); M77.02 Medial epicondylitis, left elbow; M77.01 Medial epicondylitis, right elbow
CPT/HCPCS: 97035; 97110; 97140; 97166; 97530

== ENCOUNTER → 2020-12-03 18:18 | Outpatient (CLI) | payer MEDICAID, SELFPAY ==
[2020-11-17 13:15] VITALS: BMI 38.2
--- NOTE | 2020-12-03 18:22 | CT_ITS ---
INDICATION: CT TEMPLATING FOR LEFT TKA EXAMINATION: CT Lower Extremity W/O Contrast Injection TECHNIQUE: Helically acquired images were obtained of the left lower extremity. 2-D reformats were performed by the technologist. A radiation dose optimization technique was used for this scan. IV Contrast dosage and agent: None. COMPARISON: None. FINDINGS: BONES AND ALIGNMENT: No acute fractures. The alignment is anatomic. JOINTS: Mild medial compartment predominant tricompartmental joint space narrowing and osteophytosis of the knee. SOFT TISSUES: No significant soft tissue swelling. CT/Extremity Lower without Contra IMPRESSION: No acute abnormalities. Mild, medial compartment predominant, tricompartmental degenerative arthrosis of the knee. Electronically Signed: Krystian Fletcher MD at 22:06 EDT Tel , Service support ,
== END ==
PROVIDERS: PCP Family Medicine; Referring Provider Orthopaedic Surgery; Visit Provider Orthopaedic Surgery
DX: M17.12 Unilateral primary osteoarthritis, left knee (principal)
CPT/HCPCS: 73700

== ENCOUNTER → 2020-12-08 11:41 | Outpatient (CLI) | payer MEDICAID, SELFPAY ==
[2020-11-17 13:15] VITALS: BMI 38.2
--- NOTE | 2020-12-08 13:06 | EKG12_ITS ---
Test Reason : PRE-OP Blood Pressure : / mmHG Vent. Rate : 060 BPM Atrial Rate : 060 BPM P-R Int : 126 ms QRS Dur : 084 ms QT Int : 442 ms P-R-T Axes : 008 -23 034 degrees QTc Int : 442 ms Normal sinus rhythm Poor R wave progression Confirmed by SHARYN HNASEN, JOSTIN ([id number]), scientific publications editor TOMAS JETT ([id number]) on 12/09/2020 9:13:30 AM Referred By: Emanuel Toro Confirmed By:JOSTIN COLES MD
[2020-12-08 17:06] LABS: Absolute Lymphocyte Count 2.35 X10^3/uL (0.83-4.51); Absolute Neutrophil Count 4.4 X10^3/uL (2.0-7.7); Basophil# 0.06 X10^3/uL; Basophil% 0.8 % (0-1); Eosinophil# 0.16 X10^3/uL; Eosinophils% 2.1 % (0-5); Hematocrit 40.2 % (37-47); Hemoglobin 13.1 g/dL (12.0-15.0); Lymphocyte # 2.35 X10^3/ul (0.83-4.51); Mean Corp Hgb Conc 32.6 g/dL (32-36); Mean Corpuscular Hgb 29.2 pg (27.0-32.0); Mean Corpuscular Volume 89.7 fL (81-99); Mean Platelet Vol. 9.4 fl (6.2-12.0); Monocyte# 0.63 X10^3/uL; Monocyte% 8.3 % (0-10); NRBC Flagged by Analyzer 0 % (0-5); Neutrophil # 4.36 X10^3/uL (2.7-7.7); Neutrophil % 57.5 % (47-70); Platelet Count 304 K/mm3 (150-450); RBC Distribution Width CV 12.5 % (11.6-14.6); RBC Distribution Width SD 41.1 fl (35.1-43.9); Red Blood Count 4.48 M/mm3 (4.2-5.4); White Blood Count 7.6 K/mm3 (4.4-11.0)
[2020-12-08 17:15] LABS: Partial Thromboplast Time 26.9 Seconds (24.1-36.2); Prothrombin Time (Protime)PT. 12.5 SECONDS (11.7-14.9)
[2020-12-08 17:21] LABS: Anion Gap 4 (5-15); BUN 10 mg/dL (7-18); Calcium,Total 9.1 mg/dL (8.5-10.1); Chloride 102 mmol/L (98-107); Creatinine, Serum 0.83 mg/dL (0.55-1.02); EST Glomerular Filtration Rate 75 mL/min (>60); Est Glom Filt Rate - Afr Amer 90 mL/min (>60); Glucose 102 mg/dL (74-106); Potassium 3.6 mmol/L (3.5-5.1); Sodium Level 138 mmol/L (136-145)
[2020-12-08 17:26] LABS: Magnesium 2.3 mg/dL (1.6-2.6)
[2020-12-10 08:44] LABS: Fructosamine 246 umol/L (0-285)
== END ==
PROVIDERS: Anesthesiology; PCP Family Medicine; Referring Provider Orthopaedic Surgery; Visit Provider Orthopaedic Surgery
DX: Z01.818 Encounter for other preprocedural examination (principal)
CPT/HCPCS: 36415; 80048; 82985; 83735; 85025; 85610; 85730; 86850; 86900; 86901; 87081; 93005

== ENCOUNTER 2020-12-16 04:36 | Emergency (ER) | payer MEDICAID, SELFPAY ==
[2020-11-17 13:15] VITALS: BMI 38.2
[2020-12-16 04:37] VITALS: BP 167/96; PULSE 74; RESP 18; TEMP 35.9; O2SAT 99; BMI 30.5
[2020-12-16 05:01] LABS: Absolute Lymphocyte Count 2.01 X10^3/uL (0.83-4.51); Absolute Neutrophil Count 7.3 X10^3/uL (2.0-7.7); Basophil# 0.08 X10^3/uL; Basophil% 0.8 % (0-1); Eosinophil# 0.17 X10^3/uL; Eosinophils% 1.6 % (0-5); Hematocrit 42.2 % (37-47); Hemoglobin 13.4 g/dL (12.0-15.0); Lymphocyte # 2.01 X10^3/ul (0.83-4.51); Lymphocyte % 19.3 % (19-41); Mean Corp Hgb Conc 31.8 g/dL (32-36); Mean Corpuscular Hgb 29.1 pg (27.0-32.0); Mean Corpuscular Volume 91.7 fL (81-99); Mean Platelet Vol. 9.6 fl (6.2-12.0); Monocyte# 0.75 X10^3/uL; Monocyte% 7.2 % (0-10); NRBC Flagged by Analyzer 0 % (0-5); Neutrophil # 7.34 X10^3/uL (2.7-7.7); Neutrophil % 70.2 % (47-70); Platelet Count 304 K/mm3 (150-450); RBC Distribution Width CV 12.7 % (11.6-14.6); RBC Distribution Width SD 42.7 fl (35.1-43.9); White Blood Count 10.4 K/mm3 (4.4-11.0)
--- NOTE | 2020-12-16 05:11 | EX.ED.DYSGE1 ---
HPI History of Present Illness Chief Complaint: Abd Pain Informant: patient Narrative Narrative: Patient is a 60-year-old female who presents to the emergency department for multiple complaints. Her main concern is diarrhea. She has been having around 6 episodes of loose stools over the past 5 days. She denies any recent travel or antibiotic use. She denies any history of C. difficile. She does get a diffuse abdominal pain with this. She denies any fevers or chills. She has had some nausea but no vomiting. She is not had any blood in the stool or melanotic stools. Patient is very distracted with her second complaint. She states that she sees things crawling out of her hair. She pulled a tick out of her hair in August. She is not sure how long is attached for. She has a spot on her skin that is being followed by dermatology as well. They placed her on antifungal and are supposed to do a biopsy of it this week. Has been otherwise healing well. She has a video of her hair. She states that she sees things moving across the street. They look like small little donuts uncurl. Whenever he watches video I cannot appreciate what she is talking about. Whenever he wants a video together she states that she cannot see at this time around but she will try to find a video with it. She has been using vinegar water in her hair to help with this. She feels like there have been things crawling around her ear. [facility] Medical History (Updated 12/16/20 @ 05:[address] Emanuel Bender, DO) Anxiety Arthritis Bite from insect Blackout Depression History of pain when walking History of steroid therapy History of stress test Hx of benign neoplasm of cervix uteri Hypertension Leg cramps Low iron Non-smoker Vasovagal syncope Wears contact lenses Home Medications atenolol 50 mg PO QHS 10/31/17 [History Last Taken Unknown] cholecalciferol (vitamin D3) 5,000 unit PO DAILY 10/31/17 [History Last Taken Unknown] cyanocobalamin (vitamin B-12) 1,000 mcg PO DAILY 10/31/17 [History Last Taken Unknown] iron, carbonyl 60 mg PO DAILY 10/31/17 [History Last Taken Unknown] bupropion HCl 150 mg 24 hr tablet, extended release 300 mg PO DAILY tab 06/18/20 [History Last Taken Unknown] escitalopram oxalate 20 mg tablet 40 mg PO QHS 06/18/20 [History Last Taken Unknown] Allergy/AdvReac Type Severity Reaction Status Date / Time ibuprofen AdvReac Abd Verified 12/16/20 04:40 cramps/diarrhea Surgical History History of Hx of abdominoplasty Hx of gastric bypass Hx of laminectomy Hx of left knee surgery Hx of lymph node excision Hx of tonsillectomy Hx of tubal ligation Social History Smoking Status: Never smoker ROS ROS ED Constitutional Constitutional ED: Denies chills or fever(s) Eyes Eyes: Denies change in vision ENT ENT ED: Denies epistaxis or rhinorrhea Cardiovascular Cardiovascular: Denies chest pain or palpitations Respiratory/Chest Respiratory/Chest: Denies cough, dyspnea or dyspnea on exertion Gastrointestinal Gastrointestinal: Reports abdominal pain, diarrhea and nausea; Denies melena or vomiting Genitourinary Genitourinary ED: Denies dysuria, hematuria or urinary frequency Musculoskeletal Musculoskeletal: Denies back pain or neck pain Neurologic Neurologic: Denies dizziness, headache(s) or weakness EXAM Physical Exam Const Vital Signs: 12/16/20 04:37 Temperature 96.7 F L Temperature Source Temporal Pulse Rate 74 Respiratory Rate 18 Blood Pressure 167/96 H Blood Pressure Mean 119 Pulse Ox 99 Oxygen Delivery Method Room Air Positive well nourished and well developed General Appearance ED: well developed and NAD HEENT Reports normocephalic and head/scalp atraumatic HEENT Narrative: Patient has a circular lesion on her scalp that appears to be well-healed. This has a scab present. No surrounding area of cellulitis. I do not appreciate any insects or things crawling around her hair. Eyes PERRL and EOMs intact bilaterally Neck supple Resp normal respiratory effort and clear to auscultation bilaterally Auscultation: Negative for rales, rhonchi or wheezes Cardio regular rate, regular rhythm and no murmurs GI normal to inspection, nondistended, normoactive bowel sounds and non-tender Palpation: soft; Negative for guarding or rebound tenderness present Back/Spine no CVA tenderness Extremity normal to inspection General Extremety ED: Negative for edema or tenderness General Extremity: Negative for edema Neuro CN's II-XII intact bilaterally and no sensory deficits noted Sensorium / Orientation: alert Motor Exam: strength 5/5 throughout Skin no rashes or lesions noted MDM MDM MDM Narrative Medical decision making narrative: Patient presents the ED for diarrhea. She also showed me videos of things she sees crawling around her scalp. I do not appreciate this on her scalp here in the ED or on the video. She is adamant that this is not a psychiatric issue. I am not sure if she actually did have a tick attached previously but will send a Lyme titer. With the diarrhea we will send stool cultures. Will check basic lab work as well. She otherwise has a very benign exam. Vital signs within normal limits except for mild hypertension. Patient's lab work-up did not reveal a significant acute abnormality. Lyme titer, stool cultures are pending. Patient does not appear dehydrated on physical exam. We will have her follow-up with her fan mail editor. As well as her PCP. Return precautions are reviewed with her. She understands and is agreeable this plan. All questions were answered. Lab Data Labs: Laboratory Results - last 24 hr 12/16/20 12/16/20 04:40 04:40 WBC 10.4 RBC 4.60 Hgb 13.4 Hct 42.2 MCV 91.7 MCH 29.1 MCHC 31.8 L RDW Std Deviation 42.7 RDW Coeff of Theo 12.7 Plt Count 304 MPV 9.6 Immature Gran % (Auto) 0.900 Neut % (Auto) 70.2 H Lymph % (Auto) 19.3 Ward % (Auto) 7.2 Eos % (Auto) 1.6 Baso % (Auto) 0.8 Absolute Neuts (auto) 7.3 Absolute Lymphs (auto) 2.01 Nucleated RBC % 0 Sodium 138 Potassium 3.7 Chloride 101 Carbon Dioxide 31.0 Anion Gap 6 BUN 11 Creatinine 0.89 Estim Creat Clear Calc 57.00 Est GFR (MDRD) Af Amer 84 Est GFR (MDRD) Non-Af 69 BUN/Creatinine Ratio 12.4 Glucose 136 H Calcium 9.4 Total Bilirubin 0.30 AST 14 L ALT 19 Alkaline Phosphatase 108 Total Protein 8.0 Albumin 4.0 Globulin 4.0 Albumin/Globulin Ratio 1.0 Discharge Plan Triage Chief Complaint: Abd Pain ED Provider: Emanuel Bender Dx/Rx/DC Orders Clinical Impression: Diarrhea Instructions: ED Diarrhea, Unknown Cause Prescriptions: No Action bupropion HCl 150 mg tablet extended release 24 hr 300 mg PO DAILY RF: 0 atenolol 25 MG tablet 50 mg PO QHS RF: 0 iron, carbonyl 15 MG tablet,chewable 60 mg PO DAILY RF: 0 cholecalciferol (vitamin D3) 5,000 UNIT capsule 5,000 unit PO DAILY RF: 0 cyanocobalamin (vitamin B-12) 1,000 MCG capsule 1,000 mcg PO DAILY RF: 0 escitalopram oxalate 20 mg tablet 40 mg PO QHS RF: 0 Primary Care Provider: Krishan Robetrs Referrals: Krishan Roberts MD [Primary Care Provider] - 3-5 Days if not improving Disposition Disposition: Home, self care
[2020-12-16 05:13] LABS: AST(SGOT) 14 U/L (15-37); Alanine Aminotransfer ALT/SGPT 19 U/L (13-56); Alkaline Phosphatase 108 U/L (45-117); Anion Gap 6 (5-15); BUN 11 mg/dL (7-18); BUN/Creat Ratio 12.4 RATIO (10-20); Calcium,Total 9.4 mg/dL (8.5-10.1); Chloride 101 mmol/L (98-107); Creatinine, Serum 0.89 mg/dL (0.55-1.02); EST Glomerular Filtration Rate 69 mL/min (>60); Est Glom Filt Rate - Afr Amer 84 mL/min (>60); Glucose 136 mg/dL (74-106); Potassium 3.7 mmol/L (3.5-5.1); Sodium Level 138 mmol/L (136-145)
[2020-12-16 05:29] LABS: Lyme Ab Screen Interpretation REF LAB
[2020-12-16 06:01] VITALS: BP 114/77; PULSE 68; RESP 17; O2SAT 99
[2020-12-18 07:59] LABS: Lyme Scn Total Ab w/Rflx <0.91 ISR (0.00-0.90)
== END 2020-12-16 06:02 | disposition home or self-care (01) ==
PROVIDERS: Emergency Provider Emergency Medicine; PCP Family Medicine
DX: R19.7 Diarrhea, unspecified (principal); I10 Essential (primary) hypertension; F32.9 Major depressive disorder, single episode, unspecified; Z79.899 Other long term (current) drug therapy
CPT/HCPCS: 80053; 85025; 86618; 87177; 87209; 87493; 87506; A4216

== ENCOUNTER 2020-12-16 08:38 | Emergency (ER) | payer MEDICAID, SELFPAY ==
[2020-12-16] VITALS (11 sets, daily range): BP systolic 109–154; BP diastolic 72–104; PULSE 65–80; RESP 14–18; TEMP 36; O2SAT 97–100; BMI 30.5; BMI 29.2
--- NOTE | 2020-12-16 08:54 | EX.ED.VIS.PS ---
HPI HPI - Psych History of Present Illness Chief Complaint: Mental Health Informant: patient Onset/Context/Timing Onset: Days Timing: Continuous Current Severity: Mild Maximum Severity: Mild Narrative Narrative: 60-year-old female history of anemia prior bariatric surgery and back surgery. Was seen here earlier today for diarrhea and abdominal discomfort work-up at that time was negative. She believes that she has parasites in her body. She is concerned she is going to . She thinks her's parasites coming out of her skin. Prior similar symptoms: Yes Recent Illness/Hospitalization: No PFSH PFSH Medical History Anxiety Arthritis Bite from insect Blackout Depression History of pain when walking History of steroid therapy History of stress test Hx of benign neoplasm of cervix uteri Hypertension Leg cramps Low iron Non-smoker Vasovagal syncope Wears contact lenses Home Medications atenolol 50 mg PO QHS 10/31/17 [History Last Taken Unknown] cholecalciferol (vitamin D3) 5,000 unit PO DAILY 10/31/17 [History Last Taken Unknown] cyanocobalamin (vitamin B-12) 1,000 mcg PO DAILY 10/31/17 [History Last Taken Unknown] iron, carbonyl 60 mg PO DAILY 10/31/17 [History Last Taken Unknown] bupropion HCl 150 mg 24 hr tablet, extended release 300 mg PO DAILY tab 06/18/20 [History Last Taken Unknown] escitalopram oxalate 20 mg tablet 40 mg PO QHS 06/18/20 [History Last Taken Unknown] Allergy/AdvReac Type Severity Reaction Status Date / Time ibuprofen AdvReac Abd Verified 12/16/20 04:40 cramps/diarrhea Surgical History History of Hx of abdominoplasty Hx of gastric bypass Hx of laminectomy Hx of left knee surgery Hx of lymph node excision Hx of tonsillectomy Hx of tubal ligation Social History Smoking Status: Never smoker ROS ROS ED ROS Narrative Denies any recent illness besides her diarrhea. Review of Systems ROS Unobtainable: Denies due to encephalopathy Constitutional Constitutional ED: Denies chills or fever(s) Eyes Eyes: Denies change in vision ENT ENT ED: Denies ear pain or sore throat Cardiovascular Cardiovascular: Denies chest pain Respiratory/Chest Respiratory/Chest: Denies dyspnea Gastrointestinal Gastrointestinal: Reports diarrhea; Denies abdominal pain, nausea or vomiting Genitourinary Genitourinary ED: Denies dysuria Musculoskeletal Musculoskeletal: Denies myalgias Integumentary Denies rash Neurologic Neurologic: Denies headache(s) Psychiatric Psychiatric: Denies depression Endocrine Endocrinology: Denies polyuria Hematologic/Lymphatic Hematologic/Lymphatic: Denies easy bruising Allergic/Immunologic Allergic/Immunologic ED: Denies urticaria EXAM Physical Exam Narrative Exam Narrative: Middle-aged female no acute distress. I do not see anything abnormal on her exam. Const Vital Signs: 12/16/20 08:39 12/16/20 10:01 12/16/20 12:48 Temperature 96.8 F L Temperature Source Temporal Pulse Rate 65 66 Respiratory Rate 15 16 16 Blood Pressure 149/98 H 109/78 Blood Pressure Mean 115 88 Pulse Ox 97 98 Oxygen Delivery Method Room Air Room Air 12/16/20 14:52 12/16/20 15:27 Temperature Temperature Source Pulse Rate Respiratory Rate 16 16 Blood Pressure Blood Pressure Mean Pulse Ox Oxygen Delivery Method Positive well nourished and well developed General Appearance ED: well developed HEENT normocephalic and atraumatic; Negative for trauma or tenderness Eyes PERRL and EOMs intact bilaterally Neck no lymphadenopathy, supple and no JVD General: Negative for tenderness Resp normal respiratory effort and clear to auscultation bilaterally Auscultation: Negative for rales, rhonchi or wheezes Cardio no murmurs Rate: regular rate Rhythm: regular rhythm GI non-tender, non-distended and no masses Auscultation: normoactive bowel sounds Palpation: soft; Negative for tender Back/Spine no CVA tenderness General Back: Negative for CVA tenderness Cervical Spine: Negative for cervical spine tenderness Thoracic Spine / Upper Back: Negative for thoracic spinal tenderness Lumbar Spine / Lower Back: Negative for lumbar spinal tenderness Extremity normal to inspection General Extremety ED: Negative for edema or tenderness General Extremity: Negative for edema Neuro oriented x3 and CN's II-XII intact bilaterally Sensorium / Orientation: alert, oriented to person, oriented to place and oriented to time Motor Exam: strength 5/5 throughout Psych Appearance: grossly normal Attitude: calm Activity / Motor Behavior: appropriate eye contact Speech: normal speech Skin Lesions: no lesions Rashes: no rashes MDM MDM MDM Narrative Medical decision making narrative: Patient has normal exam. No signs of toxidrome. She is talking about having parasites or things coming out of her skin. She is concerned she may . She does not seem suicidal or homicidal. I do not smell alcohol nor do I believe this is drug related. She will be evaluated by the sr. social media & mobile manager. Repeat exam patient is doing well at 3:40 PM. Resting comfortably. Patient has been seen by the sr. social media & mobile manager who agrees should she need psychiatric evaluation admission. She also called the patient's family member he said this is not her normal mental state and wants her also to be evaluated. Lab Data Attestation: I reviewed the patient's lab results. Lab results narrative: CBC unremarkable white count 6. Hemoglobin 12. Electrolytes unremarkable gap of 5. Normal creatinine. Glucose 107. Alcohol negative. Patient has not urinated as of yet for a tox screen. Labs: Laboratory Results - last 24 hr 12/16/20 12/16/20 12/16/20 12:53 12:53 12:53 WBC 6.2 RBC 4.28 Hgb 12.6 Hct 41.4 MCV 96.7 D MCH 29.4 MCHC 30.4 L RDW Std Deviation 44.9 H RDW Coeff of Theo 12.7 Plt Count 265 MPV 9.6 Immature Gran % (Auto) 0.300 Neut % (Auto) 58.2 Lymph % (Auto) 30.2 Mitchell % (Auto) 8.7 Eos % (Auto) 1.8 Baso % (Auto) 0.8 Absolute Neuts (auto) 3.6 Absolute Lymphs (auto) 1.87 Nucleated RBC % 0 Sodium 136 Potassium 3.5 Chloride 104 Carbon Dioxide 27.0 Anion Gap 5 BUN 10 Creatinine 0.73 Estim Creat Clear Calc 69.49 Est GFR (MDRD) Af Amer 106 Est GFR (MDRD) Non-Af 87 BUN/Creatinine Ratio 13.8 Glucose 107 H Calcium 9.3 Ethyl Alcohol < 3.0 Discharge Plan Triage Chief Complaint: Mental Health ED Provider: Edison Johns Dx/Rx/DC Orders Clinical Impression: Acute psychosis Prescriptions: No Action bupropion HCl 150 mg tablet extended release 24 hr 300 mg PO DAILY RF: 0 atenolol 25 MG tablet 50 mg PO QHS RF: 0 iron, carbonyl 15 MG tablet,chewable 60 mg PO DAILY RF: 0 cholecalciferol (vitamin D3) 5,000 UNIT capsule 5,000 unit PO DAILY RF: 0 cyanocobalamin (vitamin B-12) 1,000 MCG capsule 1,000 mcg PO DAILY RF: 0 escitalopram oxalate 20 mg tablet 40 mg PO QHS RF: 0 Primary Care Provider: Krishan Roberts Referrals: Krishan Roberts MD [Primary Care Provider] - Disposition Disposition: Psychiatric Hospital or Unit
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
--- NOTE | 2020-12-16 11:41 | ED.RN ---
THIS RN AT BEDSIDE WITH PT. PT DIGGING AT SCALP, AND HOLDING HER CELLPHONE IN THE AIR. PT REPORTS, I AM TRYING TO GET A VIDEO OF THE BUGS SINCE NO ONE BELIEVES ME. PT INSISTS ON SHOWING THIS RN PREVIOUSLY RECORDED VIDEOS AND PICTURES OF BUGS. NO BUGS NOTED IN THE PATIENTS VIDEOS. PT INFORMED OF NEEDING A URINE SAMPLE ORDERED PER MD. PT REFUSING AT THIS TIME TO CHANGE INTO GOWN, OBTAIN A URINE SPECIMEN, OR ALLOW A BLOOD DRAW. SOCIAL WORK AND DR. MALAGON INFORMED.
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
[2020-12-16 13:07] LABS: Absolute Lymphocyte Count 1.87 X10^3/uL (0.83-4.51); Absolute Neutrophil Count 3.6 X10^3/uL (2.0-7.7); Basophil# 0.05 X10^3/uL; Basophil% 0.8 % (0-1); Eosinophil# 0.11 X10^3/uL; Eosinophils% 1.8 % (0-5); Hematocrit 41.4 % (37-47); Hemoglobin 12.6 g/dL (12.0-15.0); Lymphocyte # 1.87 X10^3/ul (0.83-4.51); Lymphocyte % 30.2 % (19-41); Mean Corp Hgb Conc 30.4 g/dL (32-36); Mean Corpuscular Hgb 29.4 pg (27.0-32.0); Mean Corpuscular Volume 96.7 fL (81-99); Mean Platelet Vol. 9.6 fl (6.2-12.0); Monocyte# 0.54 X10^3/uL; Monocyte% 8.7 % (0-10); NRBC Flagged by Analyzer 0 % (0-5); Neutrophil % 58.2 % (47-70); Platelet Count 265 K/mm3 (150-450); RBC Distribution Width CV 12.7 % (11.6-14.6); RBC Distribution Width SD 44.9 fl (35.1-43.9); Red Blood Count 4.28 M/mm3 (4.2-5.4); White Blood Count 6.2 K/mm3 (4.4-11.0)
[2020-12-16 13:26] LABS: Anion Gap 5 (5-15); BUN 10 mg/dL (7-18); BUN/Creat Ratio 13.8 RATIO (10-20); Calcium,Total 9.3 mg/dL (8.5-10.1); Chloride 104 mmol/L (98-107); Creatinine, Serum 0.73 mg/dL (0.55-1.02); EST Glomerular Filtration Rate 87 mL/min (>60); Est Glom Filt Rate - Afr Amer 106 mL/min (>60); Estimated Creatinine Clearance 69.49 ml/min; Glucose 107 mg/dL (74-106); Potassium 3.5 mmol/L (3.5-5.1); Sodium Level 136 mmol/L (136-145)
[2020-12-16 13:44] LABS: Alcohol, Blood (Medical)-Serum < 3.0 mg/dL
[2020-12-16 16:53] LABS: Amphetamine Urine VISTA POSITIVE (<1000 ng/mL); Barbiturate Urine VISTA NEGATIVE (< 200 ng/mL); Benzodiazepine Urine VISTA NEGATIVE (< 200 ng/mL); Cocaine Urine VISTA NEGATIVE (< 300 ng/mL); Ecstacy Urine VISTA POSITIVE (< 500 ng/mL); Methadone Urine VISTA NEGATIVE (< 300 ng/mL); PCP Urine VISTA NEGATIVE (< 25 ng/mL); THC Urine VISTA NEGATIVE (< 50 ng/mL); Vista UDS pH Range 6
--- NOTE | 2020-12-16 17:00 | CM.ED ---
SOCIAL WORK Patient has provided urine sample and is medically cleared for placement. Call to [facility], intake reports beds available. Referral faxed at this time. Argenis Blanchard, HEALTH INFORMATION CLERK, [employer]
--- NOTE | 2020-12-16 17:40 | CM.ED ---
SOCIAL WORK Call from [facility]. Patient accepted to the [facility] Unit by Dr. Christiansen. Nurse to call report to [phone]. Compliance Paralegal to set up transport. Argenis Blanchard, [employer] FICO BUSINESS ANALYST, OUTSIDE PLANT TECHNICIAN
--- NOTE | 2020-12-16 17:56 | NURSING ---
CALLED [facility], TALKED TO MARTINEZ. ETA IS 60 MIN
[2020-12-16] MEDS: Ondansetron ODT 4 MG Tablet PO (18:05)
--- NOTE | 2020-12-16 19:27 | ED.RN ---
TRANSPORT CALLED TRANSPORT DELAYED TILL 2015
--- NOTE | 2020-12-16 21:03 | ED.RN ---
pt showed this nurse a video of pt neck concerned that there were parasites moving inside neck. this nurse assessed pt, no discoloration of neck, non-tender to touch. pt agreed to go to next facility for psych eval. pt purse with school papers and computer, and clothes with her. pt wanted more items out of car, but this nurse discussed with son, Armando, and both of us agreed that they would stay here.
== END 2020-12-16 21:08 ==
PROVIDERS: Emergency Provider Emergency Medicine; PCP Family Medicine
DX: F23 Brief psychotic disorder (principal); F32.9 Major depressive disorder, single episode, unspecified; R10.84 Generalized abdominal pain; R19.7 Diarrhea, unspecified; I10 Essential (primary) hypertension; Z79.899 Other long term (current) drug therapy
CPT/HCPCS: 36415; 80048; 80053; 80307; 82077; 85025; 86618; 87177; 87209; 87426; 87493; 87506; 99283; 99285; A4216

== ENCOUNTER 2021-09-29 09:07 | Emergency (ER) | payer MEDICAID, SELFPAY ==
--- NOTE | 2021-09-29 09:11 | EKG12_ITS ---
Test Reason : OVERDOSE Blood Pressure : / mmHG Vent. Rate : 078 BPM Atrial Rate : 078 BPM P-R Int : 144 ms QRS Dur : 088 ms QT Int : 406 ms P-R-T Axes : 040 -06 042 degrees QTc Int : 462 ms Normal sinus rhythm Normal ECG Confirmed by PAM HANSEN, ZAINAB ([id number]), web editor TOMAS JETT ([id number]) on 10/01/2021 2:11:29 PM Referred By: VESNA Confirmed By:ÁNGELA OROZCO MD
--- NOTE | 2021-09-29 09:11 | RAD_ITS ---
STUDY: X-RAY CHEST REASON FOR EXAM: Female, 61 years old. Chest pain TECHNIQUE: Single AP portable view of the chest. COMPARISON: Comparison is made with prior study dated 10/30/2017. FINDINGS: EKG electrodes are seen. The lungs are clear and expanded. There is no demonstrated pleural abnormality. Normal size heart. Normal mediastinum and bhumika. Normal visualized pulmonary arteries. There is atherosclerotic tortuosity of the aortic arch and descending thoracic aorta. There are diffuse degenerative changes of the visualized thoracic spine. Normal visualized ribs, clavicles, and shoulders. There is no demonstrated abnormality of the visualized soft tissue structures of the upper abdomen. RAD/Chest 1 View (Portable) IMPRESSION: No acute abnormality is seen. Electronically Signed: David Arreguin MD at 11:17 EDT ,
--- NOTE | 2021-09-29 09:13 | EX.ED.DYSGE1 ---
HPI History of Present Illness Chief Complaint: CPR Detail of Chief Complaint: Unconscious and unresponsive Informant: patient Onset/Context/Timing Onset: Today Context: Sudden Onset Timing: Continuous Current Severity: Severe Maximum Severity: Severe Narrative Narrative: 61-year-old female initially presents completely unresponsive and unconscious. A car pulled up to the ER entrance and she was pulled out of the car and brought into room 1. Patient is unable to give any history. CPR was started because she did not have a pulse. She was not breathing. She was given 4 rounds of Narcan and now is awake and answering questions. She reportedly took some unknown substance in a man gave her. She denies any recent illness. She has a history of hypertension. No cardiac history. Prior similar symptoms: No Recent Illness/Hospitalization: No PFSH PFSH Medical History Anxiety Arthritis Bite from insect Blackout Depression History of pain when walking History of steroid therapy History of stress test Hx of benign neoplasm of cervix uteri Hypertension Leg cramps Low iron Non-smoker Vasovagal syncope Wears contact lenses Home Medications atenolol 50 mg PO QHS 10/31/17 [History Last Taken Unknown] cholecalciferol (vitamin D3) 5,000 unit PO DAILY 10/31/17 [History Last Taken Unknown] cyanocobalamin (vitamin B-12) 1,000 mcg PO DAILY 10/31/17 [History Last Taken Unknown] iron, carbonyl 60 mg PO DAILY 10/31/17 [History Last Taken Unknown] bupropion HCl 150 mg 24 hr tablet, extended release 300 mg PO DAILY tab 06/18/20 [History Last Taken Unknown] escitalopram oxalate 20 mg tablet 40 mg PO QHS 06/18/20 [History Last Taken Unknown] Allergy/AdvReac Type Severity Reaction Status Date / Time ibuprofen AdvReac Abd Verified 09/29/21 09:11 cramps/diarrhea Surgical History History of Hx of abdominoplasty Hx of gastric bypass Hx of laminectomy Hx of left knee surgery Hx of lymph node excision Hx of tonsillectomy Hx of tubal ligation Social History Smoking Status: Never smoker ROS ROS ED ROS Narrative Denies recent illness. Review of Systems ROS Unobtainable: Denies due to encephalopathy Constitutional Constitutional ED: Denies fever(s) Eyes Eyes: Denies change in vision ENT ENT ED: Denies ear pain Cardiovascular Cardiovascular: Denies chest pain Respiratory/Chest Respiratory/Chest: Denies dyspnea Gastrointestinal Gastrointestinal: Denies abdominal pain, nausea or vomiting Genitourinary Genitourinary ED: Denies dysuria Musculoskeletal Musculoskeletal: Denies myalgias Integumentary Denies rash Neurologic Neurologic: Denies headache(s) Psychiatric Psychiatric: Denies depression Endocrine Endocrinology: Denies polyuria Allergic/Immunologic Allergic/Immunologic ED: Denies urticaria EXAM Physical Exam Narrative Exam Narrative: 61-year-old female presents unresponsive and pulseless. Not breathing. CPR was initiated. IV was established. Initially on the monitor she was asystole then she developed a sinus rhythm. Patient was given Narcan a total of 4 doses for 8 mg IV. She woke up more more each time. She did vomit and was suctioned. She had gum in her posterior pharynx which we removed. H EENT exam unremarkable atraumatic. Pupils are reactive. Moist mucous membranes. Neck nontender no trauma. Lungs clear to auscultation bilaterally. Heart currently regular rate and rhythm rate about 70 no murmur. Chest were nontender. Abdomen soft nontender. Moving all 4 extremities. No edema. No trauma. Neurologically, initially completely unresponsive. After Narcan she is waking up. Answering questions and following commands. Const Vital Signs: 09/29/21 09:25 09/29/21 09:45 09/29/21 10:25 Temperature 96.0 F L Temperature Source Temporal Pulse Rate 75 Pulse Rate [1] 0 L Pulse Rate [5] 95 Respiratory Rate 18 Respiratory Rate [5] 14 Blood Pressure 107/68 Blood Pressure [5] 144/81 H Blood Pressure Mean 81 Pulse Ox 96 Oxygen Delivery Method Room Air Positive well nourished, well developed and obese; Negative for cachectic, contractures or unkempt General Appearance ED: well developed; Negative for unkempt, cachectic, contractures, cyanotic, diaphoretic, NAD or pallor Nutritional Appearance: obese; Negative for cachectic HEENT Reports moist mucous membranes Negative for trauma or tenderness Eyes PERRL and EOMs intact bilaterally Neck no lymphadenopathy, supple and no JVD General: Negative for tenderness Chest Wall inspection of chest normal and palpation of chest normal Resp normal respiratory effort and clear to auscultation bilaterally Resp Narrative: Initially presented asystole. But now is in a sinus rhythm. Effort and Inspection: Negative for pain with movement Auscultation: Negative for rales, rhonchi or wheezes Cardio regular rate, regular rhythm, S1 normal heart sound, S2 normal heart sound and no murmurs GI normal to inspection, nondistended, normoactive bowel sounds, non-tender, non-distended and no masses Inspection: Negative for abdominal distention Auscultation: normoactive bowel sounds Palpation: soft; Negative for tender, guarding or rebound tenderness present Back/Spine no CVA tenderness General Back: Negative for CVA tenderness Cervical Spine: Negative for cervical spine tenderness Thoracic Spine / Upper Back: Negative for thoracic spinal tenderness or paraspinal muscle tenderness Extremity normal to inspection General Extremety ED: Negative for edema or tenderness General Extremity: Negative for edema Neuro oriented x3 Neuro Narrative: Initially presented unconscious and completely unresponsive. After Narcan is waking up. Answering questions. Sensorium / Orientation: alert, orientation impaired, lethargic and stuporous Motor Exam: strength 5/5 throughout Psych mental status grossly normal Appearance: Negative for unkempt Attitude: No agitated Mood & Affect: Negative for depressed or tearful Skin no rashes or lesions noted and no wounds General Skin Exam: Negative for jaundice or pallor MDM MDM MDM Narrative Medical decision making narrative: 61-year-old female presented unresponsive and asystolic. Treated with Narcan. Now significantly improving. Appears to be an opiate overdose. Currently unsure of the specific drug. Should undergo cardiac work-up due to her asystole and undergoing CPR. Multiple repeat exams patient is currently doing well at 11 AM. She is awake alert. She is spoken and is currently speaking to the safety instruction police officer. Vital signs are stable. She will be walked by nursing staff she is done well she will be watched for another 30 minutes to an hour and discharged to home. Lab Data Attestation: I reviewed the patient's lab results. Lab results narrative: CBC shows a white count 12.4. H&H of 12 and 40. Chemistries show sodium 135 gap of 4 normal BUN and creatinine. Glucose 165. Troponin less than 3. Labs: Laboratory Results - last 24 hr 09/29/21 09/29/21 09/29/21 09:09 09:09 10:21 WBC 12.4 H RBC 4.45 Hgb 12.9 Hct 40.7 MCV 91.5 MCH 29.0 MCHC 31.7 L RDW Std Deviation 42.5 RDW Coeff of Theo 12.8 Plt Count 326 MPV 9.4 Immature Gran % (Auto) 2.700 H Neut % (Auto) 38.3 L Lymph % (Auto) 47.7 H Payne % (Auto) 7.9 Eos % (Auto) 2.3 Baso % (Auto) 1.1 H Absolute Neuts (auto) 4.7 Absolute Lymphs (auto) 5.89 H Nucleated RBC % 0.5 Differential Comment COMMENT Sodium Cancelled 135 L Potassium Cancelled 3.9 Chloride Cancelled 102 Carbon Dioxide Cancelled 29.0 Anion Gap Cancelled 4 L BUN Cancelled 13 Creatinine Cancelled 0.78 Estim Creat Clear Calc Cancelled 64.24 Est GFR (MDRD) Af Amer Cancelled 97 Est GFR (MDRD) Non-Af Cancelled 80 BUN/Creatinine Ratio Cancelled 16.7 Glucose Cancelled 165 H Calcium Cancelled 8.2 L Troponin I High Sens Cancelled < 3 L Radiography Chest X-Ray - ED: 1 View, Read by ED Physician, Heart, Lungs, Mediastinum, Bony Structures, No Acute Disease and Chronic Changes Diagnostic Testing: Chest x-ray, portable, single view interpreted myself shows no acute abnormality. Normal cardiac silhouette and mediastinum. Normal lung junior. Chronic changes no acute process. Rhythm Strip Rhythm Strip: Sinus Rhythm Rate: 78 Ectopy: None EKG Initial EKG: Attestation: I personally reviewed and interpreted this EKG as follows: Interpretation: Sinus Rhythm and No Acute Injury Pattern Comments: Normal sinus rhythm rate of 78 no acute signs of GA or ischemia. Prior EKG tracings: not available for review Critical Care Time Critical Care Time: Yes Critical care time (excluding procedures): 30-74 minutes, Discussing w/Patient &/or Family/Pharmacy Order Entry Technician, Performing Direct Patient Care at Bedside and - (31 min) Discharge Plan Triage Chief Complaint: CPR ED Provider: Edison Johns Dx/Rx/DC Orders Clinical Impression: Overdose, Asystole, History of hypertension Instructions: ED Overdose, Opiate Prescriptions: No Action bupropion HCl 150 mg tablet extended release 24 hr 300 mg PO DAILY RF: 0 atenolol 25 MG tablet 50 mg PO QHS RF: 0 iron, carbonyl 15 MG tablet,chewable 60 mg PO DAILY RF: 0 cholecalciferol (vitamin D3) 5,000 UNIT capsule 5,000 unit PO DAILY RF: 0 cyanocobalamin (vitamin B-12) 1,000 MCG capsule 1,000 mcg PO DAILY RF: 0 escitalopram oxalate 20 mg tablet 40 mg PO QHS RF: 0 Primary Care Provider: Krishan Roberts Referrals: Krishan Roberts MD [Primary Care Provider] - 3-5 Days if not improving Activity Restrictions/Additional Instructions: Be very careful when ingesting any substances specifically do not do drugs. You are very close to dying today. Follow-up with your doctor if not improving. Return emergency department if feeling worse. Disposition Disposition: Home, Self Care
[2021-09-29 09:25] VITALS: BP 144/81; PULSE 0; PULSE 95; RESP 14; O2SAT 97
[2021-09-29 09:29] LABS: Absolute Lymphocyte Count 5.89 X10^3/uL (0.83-4.51); Absolute Neutrophil Count 4.7 X10^3/uL (2.0-7.7); Basophil# 0.13 X10^3/uL; Basophil% 1.1 % (0-1); Eosinophil# 0.28 X10^3/uL; Eosinophils% 2.3 % (0-5); Hematocrit 40.7 % (37-47); Hemoglobin 12.9 g/dL (12.0-15.0); Lymphocyte # 5.89 X10^3/ul (0.83-4.51); Lymphocyte % 47.7 % (19-41); Mean Corp Hgb Conc 31.7 g/dL (32-36); Mean Corpuscular Volume 91.5 fL (81-99); Mean Platelet Vol. 9.4 fl (6.2-12.0); Monocyte# 0.98 X10^3/uL; Monocyte% 7.9 % (0-10); NRBC Flagged by Analyzer 0.5 % (0-5); Neutrophil # 4.74 X10^3/uL (2.7-7.7); Neutrophil % 38.3 % (47-70); POSITIVE DIFFERENTIAL YES; Platelet Count 326 K/mm3 (150-450); RBC Distribution Width CV 12.8 % (11.6-14.6); RBC Distribution Width SD 42.5 fl (35.1-43.9); Red Blood Count 4.45 M/mm3 (4.2-5.4); White Blood Count 12.4 K/mm3 (4.4-11.0)
[2021-09-29 09:34] LABS: Differential Indicated SCAN CRITERIA MET
[2021-09-29 09:45] VITALS: BP 107/68; PULSE 75; RESP 18; O2SAT 96
--- NOTE | 2021-09-29 09:55 | NURSING ---
PER JEREMY, LAB, CHEMISTRIES HEMOLILZED
[2021-09-29 10:25] VITALS: TEMP 35.6; BMI 31.2
[2021-09-29 10:48] LABS: Anion Gap 4 (5-15); BUN 13 mg/dL (7-18); BUN/Creat Ratio 16.7 RATIO (10-20); Calcium,Total 8.2 mg/dL (8.5-10.1); Chloride 102 mmol/L (98-107); Creatinine, Serum 0.78 mg/dL (0.55-1.02); EST Glomerular Filtration Rate 80 mL/min (>60); Est Glom Filt Rate - Afr Amer 97 mL/min (>60); Estimated Creatinine Clearance 64.24 ml/min; Glucose 165 mg/dL (74-106); Potassium 3.9 mmol/L (3.5-5.1); Sodium Level 135 mmol/L (136-145); Troponin-I HS < 3 pg/mL (3.0-54.0)
[2021-09-29 11:43] VITALS: BP 133/76; PULSE 72; RESP 16; O2SAT 97
== END 2021-09-29 11:43 | disposition home or self-care (01) ==
PROVIDERS: Emergency Provider Emergency Medicine; PCP Family Medicine; Visit Provider Emergency Medicine
DX: I46.9 Cardiac arrest, cause unspecified (principal); T50.901A Poisoning by unspecified drugs, medicaments and biological substances, accidental (unintentional), initial encounter; I10 Essential (primary) hypertension; R41.82 Altered mental status, unspecified; F41.9 Anxiety disorder, unspecified; M19.90 Unspecified osteoarthritis, unspecified site; F32.A Depression, unspecified; Z79.899 Other long term (current) drug therapy; Z98.84 Bariatric surgery status
CPT/HCPCS: 71045; 80048; 84484; 85025; 92950; 93005; 99284; J7030; A4216

== ENCOUNTER → 2023-03-21 | Outpatient (CLI) | payer MEDICAID, SELFPAY ==
[2023-03-21 16:27] LABS: Amphetamine Urine VISTA NEGATIVE (<1000 ng/mL); Barbiturate Urine VISTA NEGATIVE (< 200 ng/mL); Benzodiazepine Urine VISTA NEGATIVE (< 200 ng/mL); Cocaine Urine VISTA NEGATIVE (< 300 ng/mL); Ecstacy Urine VISTA NEGATIVE (< 500 ng/mL); Methadone Urine VISTA NEGATIVE (< 300 ng/mL); PCP Urine VISTA NEGATIVE (< 25 ng/mL); THC Urine VISTA NEGATIVE (< 50 ng/mL); Vista UDS pH Range 7
== END | disposition home or self-care (01) ==
LOC: LAB 15:51
PROVIDERS: PCP Family Medicine; Referring Provider Nurse Practitioner Psychiatric/Mental Health; Visit Provider Nurse Practitioner Psychiatric/Mental Health
DX: F19.10 Other psychoactive substance abuse, uncomplicated (principal)
CPT/HCPCS: 80307

== ENCOUNTER → 2023-05-09 | Outpatient (CLI) | payer MEDICAID, SELFPAY ==
--- NOTE | 2023-05-09 18:59 | CT_ITS ---
EXAM: CT LEFT LOWER EXTREMITY WITHOUT INTRAVENOUS CONTRAST CLINICAL INDICATION: templating for left TKA TECHNIQUE: Helically acquired images were obtained of the left lower extremity without intravenous contrast. 2-D reformats were performed by the technologist. CTDIvol = ( 18.76 ) mGy, DLP = ( 1271.78 ) mGycm This CT exam was performed using one or more of the following dose reduction techniques: automated exposure control, adjustment of the mA and/or kV according to patient size, and/or use of iterative reconstruction technique. COMPARISON: No relevant prior studies available. 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 Greater trochanter enthesopathy noted. No acute fracture. No subluxation. Normal alignment. No more than mild degenerative changes at the hip joint. SOFT TISSUES: Moderate-sized suprapatellar joint effusion. 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 No soft tissue swelling or gas. No radiopaque foreign body. No other focal soft tissue abnormalities are. CT/Extremity Lower without Contra IMPRESSION: Preoperative planning study for auditory arthroplasty with the moderate size suprapatellar joint effusion and Lagos''s cyst present. Electronically Signed: tSanley Streeter MD at 22:59 EST ,
== END | disposition home or self-care (01) ==
LOC: CT 18:58
PROVIDERS: PCP Nurse Practitioner Family; Referring Provider Orthopaedic Surgery; Visit Provider Orthopaedic Surgery
DX: M17.12 Unilateral primary osteoarthritis, left knee (principal)
CPT/HCPCS: 73700